=== PATIENT | female | born 1945 | race American Indian/Alaskan Native ===

== ENCOUNTER 2018-08-07 19:14 | Emergency (ER) | payer MEDICARE, SELFPAY ==
[2018-08-07 19:25] VITALS: BP 190/79; PULSE 91; RESP 20; TEMP 36.8; O2SAT 94
--- NOTE | 2018-08-07 19:26 | ED.SOB ---
HPI - SOB/Dyspnea <Lisa Mehta PA-C - Last Filed: 08/07/18 22:11> General Chief Complaint: Shortness of Breath/Dyspnea Stated Complaint: SOB Time Seen by Provider: 08/07/18 19:26 Source: patient and family Mode of arrival: ambulatory Limitations: no limitations History of Present Illness This 72-year-old comes in encouraged by family due to 2 day history of chest congestion and some tightness. She states this is mostly cough and congestion with increased sputum production. She also has nasal congestion, sinus pressure, and some right ear congestion. She states that she really does not have wheeze or feel particularly short of breath. She has been more fatigued and had less appetite, doing less around the house than usual. She states that she has not had any chest pain except for earlier when she was sitting in the chair, and resolved as soon as she changed positions (this lasted a few seconds she says). She has not had any new urinary symptoms. She states that she has some constipation but did have a bowel movement yesterday. She does not have abdominal pain. She does not have any new swelling or pain in her legs or other new complaints on systems review. She states that she has been diagnosed with asthma and used to be a smoker. She has a nebulizer machine at home but has not used this in the last couple of days. She states that she has stopped her other medicines as well including her metformin because it causes diarrhea, and has stopped her blood pressure medicines. States that she avoids doctors but does have a PCP. Related Data Previous Rx's Medication Instructions Recorded VITAMIN D (Vitamin D3) 1,000 u PO QDAY #180 tab 06/17/16 albuterol sulfate 3 ml INH X1 #1 box 08/05/16 famotidine 20 mg PO QDAY #90 tab 01/20/17 furosemide 40 mg PO QDAY #90 tab 01/20/17 lisinopril 2.5 mg PO QDAY #90 tab 01/20/17 metformin [Glucophage] 500 mg PO BID #180 tab 01/20/17 Test Strips - Freestyle str SEECOM SEE INSTRUCTIONS #100 01/21/17 montelukast [Singulair] 10 mg PO HS #30 tab 02/24/17 doxycycline monohydrate 100 mg PO BID #14 cap 08/07/18 Allergies Allergy/AdvReac Type Severity Reaction Status Date / Time codeine Allergy Unknown ITCHING Verified 08/07/18 19:27 morphine Allergy Unknown RASH Verified 08/07/18 19:27 Penicillins Allergy Unknown RASH Verified 08/07/18 19:27 Review of Systems <Lisa Mehta PA-C - Last Filed: 08/07/18 22:11> Review of Systems ROS Unobtainable: All systems reviewed & are unremarkable except as noted in HPI and below PFSH <Lisa Mehta PA-C - Last Filed: 08/07/18 22:11> Comment: Approximately 20+ pack year smoking history, quit 2009 Exam <VICTORIA Howe Last Filed: 08/07/18 22:11> Narrative Exam Narrative: GENERAL APPEARANCE: Patient sitting comfortably, in no distress. HEAD: No sinus TTP. EYES: PERRL, EOMI. EARS: Normal auditory canals, left TM intact with dull right reflex, right is mostly occluded secondary to cerumen ORAL CAVITY: Normal oropharynx. THROAT: Clear. PND noted NECK/THYROID: Neck supple, full range of motion, no cervical lymphadenopathy. LUNGS: Breath what course and reduced throughout without wheezes or crackles, no cough on exam HEART: RRR without murmur, nl S1, S2, no S3 or S4. ABDOMEN: Soft, nontender, nondistended, +bowel sounds x4 quadrants EXTREMITIES: No edema, no calf tenderness Initial Vital Signs Initial Vital Signs: Vital Signs Temperature 98.2 F 08/07/18 19:25 Pulse Rate 91 H 08/07/18 19:25 Respiratory Rate 20 08/07/18 19:25 Blood Pressure 190/79 H 08/07/18 19:25 Pulse Oximetry 94 08/07/18 19:25 <Bay Mcbride DO - Last Filed: 08/08/18 01:46> Initial Vital Signs Initial Vital Signs: Vital Signs Temperature 98.2 F 08/07/18 19:25 Pulse Rate 91 H 08/07/18 19:25 Respiratory Rate 20 08/07/18 19:25 Blood Pressure 190/79 H 08/07/18 19:25 Pulse Oximetry 94 08/07/18 19:25 Course <VICTORIA Howe Last Filed: 08/07/18 22:11> Additional Information: Patient was feeling significantly improved after nebulizer treatments. She has not been using her home nebulizer machine. She has a diagnosis of asthma, states that she does not know of any diagnosis of COPD though this is noted in her previous records. Explained that this is likely given her chronic cough and smoking history. Will start antibiotics for COPD given her age, comorbidities, and increased sputum production. 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 She agreed to return if acutely worse. Agreed to follow up with her PCP early next week for recheck, and encouraged her to discuss resuming her diabetes and blood pressure medications. Orders Ordered: ED Orders 08/07/18 19:24 EKG-12 Lead Stat 08/07/18 19:27 Consult to Respiratory Therapy Evaluate & Treat XR chest 2V Stat 08/07/18 20:00 Complete Blood Count AUTO DIFF Stat Comprehensive Metabolic Panel Stat Influenza A and B by PCR Rapid Stat Lactate (Lactic Acid) Stat 08/07/18 20:50 Consult to Respiratory Therapy Evaluate & Treat Discontinued Medications Albuterol (Ventolin Hfa Prepack) 1 box MISC SEEINSTR ONE Stop: 08/07/18 20:51 Last Admin: 08/07/18 20:58 Dose: 1 box Albuterol/Ipratropium (Duoneb) 3 ml INH NOW ONE Stop: 08/07/18 19:53 Last Admin: 08/07/18 20:01 Dose: 3 ml Doxycycline Hyclate (Vibramycin) 100 mg PO NOW ONE Stop: 08/07/18 20:51 Last Admin: 08/07/18 21:00 Dose: 100 mg Vital Signs - 8 hr 08/07/18 19:25 08/07/18 20:01 08/07/18 20:44 Temperature 98.2 F Pulse Rate 91 H 84 82 Respiratory Rate 20 18 19 Blood Pressure 190/79 H Blood Pressure [Right Arm] 181/78 H Pulse Oximetry 94 94 95 08/07/18 21:54 Temperature Pulse Rate 90 Respiratory Rate 22 Blood Pressure 158/71 H Blood Pressure [Right Arm] Pulse Oximetry 95 <Bay Mcbride DO - Last Filed: 08/08/18 01:46> Orders Ordered: ED Orders 08/07/18 19:24 EKG-12 Lead Stat 08/07/18 19:27 Consult to Respiratory Therapy Evaluate & Treat XR chest 2V Stat 08/07/18 20:00 Complete Blood Count AUTO DIFF Stat Comprehensive Metabolic Panel Stat Influenza A and B by PCR Rapid Stat Lactate (Lactic Acid) Stat 08/07/18 20:50 Consult to Respiratory Therapy Evaluate & Treat Discontinued Medications Albuterol (Ventolin Hfa Prepack) 1 box MISC SEEINSTR ONE Stop: 08/07/18 20:51 Last Admin: 08/07/18 20:58 Dose: 1 box Albuterol/Ipratropium (Duoneb) 3 ml INH NOW ONE Stop: 08/07/18 19:53 Last Admin: 08/07/18 20:01 Dose: 3 ml Doxycycline Hyclate (Vibramycin) 100 mg PO NOW ONE Stop: 08/07/18 20:51 Last Admin: 08/07/18 21:00 Dose: 100 mg Vital Signs - 8 hr 08/07/18 19:25 08/07/18 20:01 08/07/18 20:44 Temperature 98.2 F Pulse Rate 91 H 84 82 Respiratory Rate 20 18 19 Blood Pressure 190/79 H Blood Pressure [Right Arm] 181/78 H Pulse Oximetry 94 94 95 08/07/18 21:54 Temperature Pulse Rate 90 Respiratory Rate 22 Blood Pressure 158/71 H Blood Pressure [Right Arm] Pulse Oximetry 95 MDM - SOB/Dyspnea <Lisa Mehta PA-C - Last Filed: 08/07/18 22:11> Lab Data Attestation: I reviewed the patient's lab results. Result diagrams: 08/07/18 20:00 08/07/18 20:00 Lab Results 08/07/18 08/07/18 08/07/18 Range/Units 20:00 20:00 20:00 WBC 13.6 H (4.5-11.0) X10^3/uL RBC 5.00 (4.0-5.2) X10^6/uL Hgb 14.1 (12.0-16.0) g/dL Hct 42.1 (36-46) % MCV 84.2 (80-100) fL MCH 28.1 (26-34) PG MCHC 33.4 (30-36) % RDW 15.2 H (11.6-14.8) % Plt Count 311 (150-400) X10^3/uL Neut % (Auto) 78.5 H (50-75) % Lymph % (Auto) 13.6 L (25-40) % [place] % (Auto) 6.2 (3-14) % Eos % (Auto) 1.0 L (2-4) % Baso % (Auto) 0.7 (0-2) % Neut # (Auto) 38959 H (6067-6466) /uL Lymph # (Auto) 1900 (6614-5428) /uL [place] # (Auto) 800 (0-900) /uL Eos # (Auto) 100 (0-450) /uL Baso # (Auto) 100 (0-100) /uL Sodium 138 (137-145) mmol/L Potassium 3.7 (3.4-5.1) mmol/L Chloride 104 (98-107) mmol/L Carbon Dioxide 24 (22-32) mmol/L BUN 13 (7-17) mg/dL Creatinine 0.70 (0.52-1.04) mg/dL Estimated GFR > 60.0 (>60) mL/min BUN/Creatinine Ratio 18.6 (6-22) Glucose 144 H (80-110) mg/dL Lactate 0.9 (0.7-2.1) mmol/L Calcium 11.2 H (8.4-10.2) mg/dL Total Bilirubin 0.6 (0.2-1.3) mg/dL AST 19 (14-36) IU/L ALT 25 (9-52) IU/L Alkaline Phosphatase 84 (38-126) U/L Total Protein 7.1 (6.3-8.2) g/dL Albumin 4.2 (3.5-5.0) g/dL Globulin 2.9 (1.7-4.1) g/dL Albumin/Globulin Ratio 1.4 (1.0-2.8) Influenza A & B (PCR) (Negative) 08/07/18 Range/Units 20:00 WBC (4.5-11.0) X10^3/uL RBC (4.0-5.2) X10^6/uL Hgb (12.0-16.0) g/dL Hct (36-46) % MCV (80-100) fL MCH (26-34) PG MCHC (30-36) % RDW (11.6-14.8) % Plt Count (150-400) X10^3/uL Neut % (Auto) (50-75) % Lymph % (Auto) (25-40) % [place] % (Auto) (3-14) % Eos % (Auto) (2-4) % Baso % (Auto) (0-2) % Neut # (Auto) (6769-4863) /uL Lymph # (Auto) (3514-4954) /uL [place] # (Auto) (0-900) /uL Eos # (Auto) (0-450) /uL Baso # (Auto) (0-100) /uL Sodium (137-145) mmol/L Potassium (3.4-5.1) mmol/L Chloride (98-107) mmol/L Carbon Dioxide (22-32) mmol/L BUN (7-17) mg/dL Creatinine (0.52-1.04) mg/dL Estimated GFR (>60) mL/min BUN/Creatinine Ratio (6-22) Glucose (80-110) mg/dL Lactate (0.7-2.1) mmol/L Calcium (8.4-10.2) mg/dL Total Bilirubin (0.2-1.3) mg/dL AST (14-36) IU/L ALT (9-52) IU/L Alkaline Phosphatase (38-126) U/L Total Protein (6.3-8.2) g/dL Albumin (3.5-5.0) g/dL Globulin (1.7-4.1) g/dL Albumin/Globulin Ratio (1.0-2.8) Influenza A & B (PCR) Negative (Negative) Imaging Data Chest x-ray: Radiologist's impression: View Report History [address] [address] XRay Report Signed Patient: Ivan Guy MR#: [id number] : 1945 Acct:[id number] Age/Sex: 72 / F Date of Service: 08/07/18 Loc: ED Accession Number: [id number] Procedure: XR chest 2V Ordering Provider: Lisa Mehta P.A-C PROCEDURE: XR CHEST 2V INDICATIONS: shortness of breath TECHNIQUE: 2 views of the chest were acquired. COMPARISON: None. FINDINGS: Surgical changes and devices: None. Lungs and pleura: No pleural effusions or pneumothorax. Lungs are clear. Mediastinum: Mediastinal contours are normal. Heart size is normal. Bones and chest wall: No suspicious bony abnormalities. Soft tissues appear unremarkable. IMPRESSION: No acute pulmonary process. Dictated by: Renetta Maza M.D. on 08/07/2018 at 19:40 Approved by: Renetta Maza M.D. on 08/07/2018 at 19:41 ECG Data Attestation: I personally reviewed and interpreted this ECG as follows: (Sinus rhythm with rate 88, isoelectric axis, nonspecific ST changes ) Prior ECG tracings: not available for review <Bay Mcbride DO - Last Filed: 08/08/18 01:46> Lab Data Lab Results 08/07/18 08/07/18 08/07/18 Range/Units 20:00 20:00 20:00 WBC 13.6 H (4.5-11.0) X10^3/uL RBC 5.00 (4.0-5.2) X10^6/uL Hgb 14.1 (12.0-16.0) g/dL Hct 42.1 (36-46) % MCV 84.2 (80-100) fL MCH 28.1 (26-34) PG MCHC 33.4 (30-36) % RDW 15.2 H (11.6-14.8) % Plt Count 311 (150-400) X10^3/uL Neut % (Auto) 78.5 H (50-75) % Lymph % (Auto) 13.6 L (25-40) % [place] % (Auto) 6.2 (3-14) % Eos % (Auto) 1.0 L (2-4) % Baso % (Auto) 0.7 (0-2) % Neut # (Auto) 90923 H (0475-3596) /uL Lymph # (Auto) 1900 (0463-0724) /uL [place] # (Auto) 800 (0-900) /uL Eos # (Auto) 100 (0-450) /uL Baso # (Auto) 100 (0-100) /uL Sodium 138 (137-145) mmol/L Potassium 3.7 (3.4-5.1) mmol/L Chloride 104 (98-107) mmol/L Carbon Dioxide 24 (22-32) mmol/L BUN 13 (7-17) mg/dL Creatinine 0.70 (0.52-1.04) mg/dL Estimated GFR > 60.0 (>60) mL/min BUN/Creatinine Ratio 18.6 (6-22) Glucose 144 H (80-110) mg/dL Lactate 0.9 (0.7-2.1) mmol/L Calcium 11.2 H (8.4-10.2) mg/dL Total Bilirubin 0.6 (0.2-1.3) mg/dL AST 19 (14-36) IU/L ALT 25 (9-52) IU/L Alkaline Phosphatase 84 (38-126) U/L Total Protein 7.1 (6.3-8.2) g/dL Albumin 4.2 (3.5-5.0) g/dL Globulin 2.9 (1.7-4.1) g/dL Albumin/Globulin Ratio 1.4 (1.0-2.8) Influenza A & B (PCR) (Negative) 08/07/18 Range/Units 20:00 WBC (4.5-11.0) X10^3/uL RBC (4.0-5.2) X10^6/uL Hgb (12.0-16.0) g/dL Hct (36-46) % MCV (80-100) fL MCH (26-34) PG MCHC (30-36) % RDW (11.6-14.8) % Plt Count (150-400) X10^3/uL Neut % (Auto) (50-75) % Lymph % (Auto) (25-40) % [place] % (Auto) (3-14) % Eos % (Auto) (2-4) % Baso % (Auto) (0-2) % Neut # (Auto) (8798-6083) /uL Lymph # (Auto) (0281-9718) /uL [place] # (Auto) (0-900) /uL Eos # (Auto) (0-450) /uL Baso # (Auto) (0-100) /uL Sodium (137-145) mmol/L Potassium (3.4-5.1) mmol/L Chloride (98-107) mmol/L Carbon Dioxide (22-32) mmol/L BUN (7-17) mg/dL Creatinine (0.52-1.04) mg/dL Estimated GFR (>60) mL/min BUN/Creatinine Ratio (6-22) Glucose (80-110) mg/dL Lactate (0.7-2.1) mmol/L Calcium (8.4-10.2) mg/dL Total Bilirubin (0.2-1.3) mg/dL AST (14-36) IU/L ALT (9-52) IU/L Alkaline Phosphatase (38-126) U/L Total Protein (6.3-8.2) g/dL Albumin (3.5-5.0) g/dL Globulin (1.7-4.1) g/dL Albumin/Globulin Ratio (1.0-2.8) Influenza A & B (PCR) Negative (Negative) Discharge Plan Departure Patient Disposition: Home Clinical Impression: Asthma with COPD with exacerbation Discharge Date/Time: 08/07/18 21:55 Interventions: ED Discharge Assessment Last Done: 08/07/18 21:54 Instructions: DI for Asthma -- Adult, DI for Chronic Obstructive Pulmonary Disease Activity Restrictions/Additional Instructions: You should return as we talked about if you have any acutely worsening symptoms. I think with what you described to me today you have a combination of asthma and some COPD/smoker's cough with a chest cold. Your test did not show pneumonia or influenza. You do not have signs of a heart problem. It is very important that you use your nebulizer machine at home, and you can also use the albuterol inhaler that we gave you as often as needed for cough, or chest tightness. You have had the 1st dose of antibiotic here tonight (doxycycline), and you can pickers material handlers the rest of the prescription as soon as right ate opens in the morning and you should take the 2nd dose then (I have sent a prescription for you). Please take the antibiotic twice daily and be sure to follow up with your PCP on Friday or Friday for recheck. Please discussed starting different diabetes medicines since you had side effects, as well as your blood pressure medicine Prescriptions: New doxycycline monohydrate 100 mg capsule 100 mg PO BID Qty: 14 RF: 0 No Action VITAMIN D (Vitamin D3) 1,000 u PO QDAY Qty: 180 RF: 1 albuterol sulfate 2.5 MG/3 ML solution for nebulization 3 ml INH X1 Qty: 1 RF: 2 furosemide 40 MG tablet 40 mg PO QDAY Qty: 90 RF: 1 metformin [Glucophage] 500 MG tablet 500 mg PO BID Qty: 180 RF: 1 lisinopril 2.5 MG tablet 2.5 mg PO QDAY Qty: 90 RF: 1 famotidine 20 MG tablet 20 mg PO QDAY Qty: 90 RF: 1 Test Strips - Freestyle SEECOM SEE INSTRUCTIONS Qty: 100 RF: 3 montelukast [Singulair] 10 MG tablet 10 mg PO HS Qty: 30 RF: 2 Referrals: oBy Patiño MD [Physician] - <Bay Mcbride DO - Last Filed: 08/08/18 01:46> Cosign ED Attending Carlos Attestation: I was immediately available in the department for consultation. Documentation has been reviewed. I agree with assessment and plan.
--- NOTE | 2018-08-07 19:52 | ED_ITS ---
HPI - SOB/Dyspnea <Lisa Mehta PA-C - Last Filed: 08/07/18 22:11> General Chief Complaint: Shortness of Breath/Dyspnea Stated Complaint: SOB Time Seen by Provider: 08/07/18 19:26 Source: patient and family Mode of arrival: ambulatory Limitations: no limitations History of Present Illness This 72-year-old comes in encouraged by family due to 2 day history of chest congestion and some tightness. She states this is mostly cough and congestion with increased sputum production. She also has nasal congestion, sinus pressure , and some right ear congestion. She states that she really does not have wheeze or feel particularly short of breath. She has been more fatigued and had less appetite, doing less around the house than usual. She states that she has not had any chest pain except for earlier when she was sitting in the chair , and resolved as soon as she changed positions (this lasted a few seconds she says). She has not had any new urinary symptoms. She states that she has some constipation but did have a bowel movement yesterday. She does not have abdominal pain. She does not have any new swelling or pain in her legs or other new complaints on systems review. She states that she has been diagnosed with asthma and used to be a smoker. She has a nebulizer machine at home but has not used this in the last couple of days. She states that she has stopped her other medicines as well including her metformin because it causes diarrhea, and has stopped her blood pressure medicines. States that she avoids doctors but does have a PCP. Related Data Previous Rx's Medication Instructions Recorded VITAMIN D (Vitamin D3) 1,000 u PO QDAY #180 tab 06/17/16 albuterol sulfate 3 ml INH X1 #1 box 08/05/16 famotidine 20 mg PO QDAY #90 tab 01/20/17 furosemide 40 mg PO QDAY #90 tab 01/20/17 lisinopril 2.5 mg PO QDAY #90 tab 01/20/17 metformin [Glucophage] 500 mg PO BID #180 tab 01/20/17 Test Strips - Freestyle str SEECOM SEE INSTRUCTIONS #100 01/21/17 montelukast [Singulair] 10 mg PO HS #30 tab 02/24/17 doxycycline monohydrate 100 mg PO BID #14 cap 08/07/18 Allergies Allergy/AdvReac Type Severity Reaction Status Date / Time codeine Allergy Unknown ITCHING Verified 08/07/18 19:27 morphine Allergy Unknown RASH Verified 08/07/18 19:27 Penicillins Allergy Unknown RASH Verified 08/07/18 19:27 Review of Systems <Lisa Mehta PA-C - Last Filed: 08/07/18 22:11> Review of Systems ROS Unobtainable: All systems reviewed & are unremarkable except as noted in HPI and below PFSH <Lisa Mehta PA-C - Last Filed: 08/07/18 22:11> Comment: Approximately 20+ pack year smoking history, quit 2009 Exam <VICTORIA Howe Last Filed: 08/07/18 22:11> Narrative Exam Narrative: GENERAL APPEARANCE: Patient sitting comfortably, in no distress. HEAD: No sinus TTP. EYES: PERRL, EOMI. EARS: Normal auditory canals, left TM intact with dull right reflex, right is mostly occluded secondary to cerumen ORAL CAVITY: Normal oropharynx. THROAT: Clear. PND noted NECK/THYROID: Neck supple, full range of motion, no cervical lymphadenopathy. LUNGS: Breath what course and reduced throughout without wheezes or crackles, no cough on exam HEART: RRR without murmur, nl S1, S2, no S3 or S4. ABDOMEN: Soft, nontender, nondistended, +bowel sounds x4 quadrants EXTREMITIES: No edema, no calf tenderness Initial Vital Signs Initial Vital Signs: Vital Signs Temperature 98.2 F 08/07/18 19:25 Pulse Rate 91 H 08/07/18 19:25 Respiratory Rate 20 08/07/18 19:25 Blood Pressure 190/79 H 08/07/18 19:25 Pulse Oximetry 94 08/07/18 19:25 <Bay Mcbride DO - Last Filed: 08/08/18 01:46> Initial Vital Signs Initial Vital Signs: Vital Signs Temperature 98.2 F 08/07/18 19:25 Pulse Rate 91 H 08/07/18 19:25 Respiratory Rate 20 08/07/18 19:25 Blood Pressure 190/79 H 08/07/18 19:25 Pulse Oximetry 94 08/07/18 19:25 Course <VICTORIA Howe Last Filed: 08/07/18 22:11> Additional Information: Patient was feeling significantly improved after nebulizer treatments. She has not been using her home nebulizer machine. She has a diagnosis of asthma, states that she does not know of any diagnosis of COPD though this is noted in her previous records. Explained that this is likely given her chronic cough and smoking history. Will start antibiotics for COPD given her age, comorbidities, and increased sputum production. She will stay here tonight and draft roller picker her prescriptions in the morning. She agreed to return if acutely worse. Agreed to follow up with her PCP early next week for recheck, and encouraged her to discuss resuming her diabetes and blood pressure medications. Orders Ordered: ED Orders 08/07/18 19:24 EKG-12 Lead Stat 08/07/18 19:27 Consult to Respiratory Therapy Evaluate & Treat XR chest 2V Stat 08/07/18 20:00 Complete Blood Count AUTO DIFF Stat Comprehensive Metabolic Panel Stat Influenza A and B by PCR Rapid Stat Lactate (Lactic Acid) Stat 08/07/18 20:50 Consult to Respiratory Therapy Evaluate & Treat Discontinued Medications Albuterol (Ventolin Hfa Prepack) 1 box MISC SEEINSTR ONE Stop: 08/07/18 20:51 Last Admin: 08/07/18 20:58 Dose: 1 box Albuterol/Ipratropium (Duoneb) 3 ml INH NOW ONE Stop: 08/07/18 19:53 Last Admin: 08/07/18 20:01 Dose: 3 ml Doxycycline Hyclate (Vibramycin) 100 mg PO NOW ONE Stop: 08/07/18 20:51 Last Admin: 08/07/18 21:00 Dose: 100 mg Vital Signs - 8 hr 08/07/18 19:25 08/07/18 20:01 08/07/18 20:44 Temperature 98.2 F Pulse Rate 91 H 84 82 Respiratory Rate 20 18 19 Blood Pressure 190/79 H Blood Pressure [Right Arm] 181/78 H Pulse Oximetry 94 94 95 08/07/18 21:54 Temperature Pulse Rate 90 Respiratory Rate 22 Blood Pressure 158/71 H Blood Pressure [Right Arm] Pulse Oximetry 95 <Bay Mcbride DO - Last Filed: 08/08/18 01:46> Orders Ordered: ED Orders 08/07/18 19:24 EKG-12 Lead Stat 08/07/18 19:27 Consult to Respiratory Therapy Evaluate & Treat XR chest 2V Stat 08/07/18 20:00 Complete Blood Count AUTO DIFF Stat Comprehensive Metabolic Panel Stat Influenza A and B by PCR Rapid Stat Lactate (Lactic Acid) Stat 08/07/18 20:50 Consult to Respiratory Therapy Evaluate & Treat Discontinued Medications Albuterol (Ventolin Hfa Prepack) 1 box MISC SEEINSTR ONE Stop: 08/07/18 20:51 Last Admin: 08/07/18 20:58 Dose: 1 box Albuterol/Ipratropium (Duoneb) 3 ml INH NOW ONE Stop: 08/07/18 19:53 Last Admin: 08/07/18 20:01 Dose: 3 ml Doxycycline Hyclate (Vibramycin) 100 mg PO NOW ONE Stop: 08/07/18 20:51 Last Admin: 08/07/18 21:00 Dose: 100 mg Vital Signs - 8 hr 08/07/18 19:25 08/07/18 20:01 08/07/18 20:44 Temperature 98.2 F Pulse Rate 91 H 84 82 Respiratory Rate 20 18 19 Blood Pressure 190/79 H Blood Pressure [Right Arm] 181/78 H Pulse Oximetry 94 94 95 08/07/18 21:54 Temperature Pulse Rate 90 Respiratory Rate 22 Blood Pressure 158/71 H Blood Pressure [Right Arm] Pulse Oximetry 95 MDM - SOB/Dyspnea <Lisa Mehta PA-C - Last Filed: 08/07/18 22:11> Lab Data Attestation: I reviewed the patient's lab results. Result diagrams: 08/07/18 20:00 08/07/18 20:00 Lab Results 08/07/18 08/07/18 08/07/18 Range/Units 20:00 20:00 20:00 WBC 13.6 H (4.5-11.0) X10^3/uL RBC 5.00 (4.0-5.2) X10^6/uL Hgb 14.1 (12.0-16.0) g/dL Hct 42.1 (36-46) % MCV 84.2 (80-100) fL MCH 28.1 (26-34) PG MCHC 33.4 (30-36) % RDW 15.2 H (11.6-14.8) % Plt Count 311 (150-400) X10^3/uL Neut % (Auto) 78.5 H (50-75) % Lymph % (Auto) 13.6 L (25-40) % [place] % (Auto) 6.2 (3-14) % Eos % (Auto) 1.0 L (2-4) % Baso % (Auto) 0.7 (0-2) % Neut # (Auto) 21942 H (2298-8452) /uL Lymph # (Auto) 1900 (0692-5766) /uL [place] # (Auto) 800 (0-900) /uL Eos # (Auto) 100 (0-450) /uL Baso # (Auto) 100 (0-100) /uL Sodium 138 (137-145) mmol/L Potassium 3.7 (3.4-5.1) mmol/L Chloride 104 (98-107) mmol/L Carbon Dioxide 24 (22-32) mmol/L BUN 13 (7-17) mg/dL Creatinine 0.70 (0.52-1.04) mg/dL Estimated GFR > 60.0 (>60) mL/min BUN/Creatinine Ratio 18.6 (6-22) Glucose 144 H (80-110) mg/dL Lactate 0.9 (0.7-2.1) mmol/L Calcium 11.2 H (8.4-10.2) mg/dL Total Bilirubin 0.6 (0.2-1.3) mg/dL AST 19 (14-36) IU/L ALT 25 (9-52) IU/L Alkaline Phosphatase 84 (38-126) U/L Total Protein 7.1 (6.3-8.2) g/dL Albumin 4.2 (3.5-5.0) g/dL Globulin 2.9 (1.7-4.1) g/dL Albumin/Globulin Ratio 1.4 (1.0-2.8) Influenza A & B (PCR) (Negative) 08/07/18 Range/Units 20:00 WBC (4.5-11.0) X10^3/uL RBC (4.0-5.2) X10^6/uL Hgb (12.0-16.0) g/dL Hct (36-46) % MCV (80-100) fL MCH (26-34) PG MCHC (30-36) % RDW (11.6-14.8) % Plt Count (150-400) X10^3/uL Neut % (Auto) (50-75) % Lymph % (Auto) (25-40) % [place] % (Auto) (3-14) % Eos % (Auto) (2-4) % Baso % (Auto) (0-2) % Neut # (Auto) (9986-7331) /uL Lymph # (Auto) (5694-1209) /uL [place] # (Auto) (0-900) /uL Eos # (Auto) (0-450) /uL Baso # (Auto) (0-100) /uL Sodium (137-145) mmol/L Potassium (3.4-5.1) mmol/L Chloride (98-107) mmol/L Carbon Dioxide (22-32) mmol/L BUN (7-17) mg/dL Creatinine (0.52-1.04) mg/dL Estimated GFR (>60) mL/min BUN/Creatinine Ratio (6-22) Glucose (80-110) mg/dL Lactate (0.7-2.1) mmol/L Calcium (8.4-10.2) mg/dL Total Bilirubin (0.2-1.3) mg/dL AST (14-36) IU/L ALT (9-52) IU/L Alkaline Phosphatase (38-126) U/L Total Protein (6.3-8.2) g/dL Albumin (3.5-5.0) g/dL Globulin (1.7-4.1) g/dL Albumin/Globulin Ratio (1.0-2.8) Influenza A & B (PCR) Negative (Negative) Imaging Data Chest x-ray: Radiologist's impression: View Report History [address] [address] XRay Report Signed Patient: Ivan Guy MR#: [id number] : 1945 Acct:[id number] Age/Sex: 72 / F Date of Service: 08/07/18 Loc: ED Accession Number: [id number] Procedure: XR chest 2V Ordering Provider: Lisa Mehta P.A-C PROCEDURE: XR CHEST 2V INDICATIONS: shortness of breath TECHNIQUE: 2 views of the chest were acquired. COMPARISON: None. FINDINGS: Surgical changes and devices: None. Lungs and pleura: No pleural effusions or pneumothorax. Lungs are clear. Mediastinum: Mediastinal contours are normal. Heart size is normal. Bones and chest wall: No suspicious bony abnormalities. Soft tissues appear unremarkable. IMPRESSION: No acute pulmonary process. Dictated by: Renetta Maza M.D. on 08/07/2018 at 19:40 Approved by: Renetta Maza M.D. on 08/07/2018 at 19:41 ECG Data Attestation: I personally reviewed and interpreted this ECG as follows: (Sinus rhythm with rate 88, isoelectric axis, nonspecific ST changes ) Prior ECG tracings: not available for review <Bay Mcbride DO - Last Filed: 08/08/18 01:46> Lab Data Lab Results 08/07/18 08/07/18 08/07/18 Range/Units 20:00 20:00 20:00 WBC 13.6 H (4.5-11.0) X10^3/uL RBC 5.00 (4.0-5.2) X10^6/uL Hgb 14.1 (12.0-16.0) g/dL Hct 42.1 (36-46) % MCV 84.2 (80-100) fL MCH 28.1 (26-34) PG MCHC 33.4 (30-36) % RDW 15.2 H (11.6-14.8) % Plt Count 311 (150-400) X10^3/uL Neut % (Auto) 78.5 H (50-75) % Lymph % (Auto) 13.6 L (25-40) % [place] % (Auto) 6.2 (3-14) % Eos % (Auto) 1.0 L (2-4) % Baso % (Auto) 0.7 (0-2) % Neut # (Auto) 44419 H (0343-8375) /uL Lymph # (Auto) 1900 (0077-2383) /uL [place] # (Auto) 800 (0-900) /uL Eos # (Auto) 100 (0-450) /uL Baso # (Auto) 100 (0-100) /uL Sodium 138 (137-145) mmol/L Potassium 3.7 (3.4-5.1) mmol/L Chloride 104 (98-107) mmol/L Carbon Dioxide 24 (22-32) mmol/L BUN 13 (7-17) mg/dL Creatinine 0.70 (0.52-1.04) mg/dL Estimated GFR > 60.0 (>60) mL/min BUN/Creatinine Ratio 18.6 (6-22) Glucose 144 H (80-110) mg/dL Lactate 0.9 (0.7-2.1) mmol/L Calcium 11.2 H (8.4-10.2) mg/dL Total Bilirubin 0.6 (0.2-1.3) mg/dL AST 19 (14-36) IU/L ALT 25 (9-52) IU/L Alkaline Phosphatase 84 (38-126) U/L Total Protein 7.1 (6.3-8.2) g/dL Albumin 4.2 (3.5-5.0) g/dL Globulin 2.9 (1.7-4.1) g/dL Albumin/Globulin Ratio 1.4 (1.0-2.8) Influenza A & B (PCR) (Negative) 08/07/18 Range/Units 20:00 WBC (4.5-11.0) X10^3/uL RBC (4.0-5.2) X10^6/uL Hgb (12.0-16.0) g/dL Hct (36-46) % MCV (80-100) fL MCH (26-34) PG MCHC (30-36) % RDW (11.6-14.8) % Plt Count (150-400) X10^3/uL Neut % (Auto) (50-75) % Lymph % (Auto) (25-40) % [place] % (Auto) (3-14) % Eos % (Auto) (2-4) % Baso % (Auto) (0-2) % Neut # (Auto) (3762-3588) /uL Lymph # (Auto) (0593-0454) /uL [place] # (Auto) (0-900) /uL Eos # (Auto) (0-450) /uL Baso # (Auto) (0-100) /uL Sodium (137-145) mmol/L Potassium (3.4-5.1) mmol/L Chloride (98-107) mmol/L Carbon Dioxide (22-32) mmol/L BUN (7-17) mg/dL Creatinine (0.52-1.04) mg/dL Estimated GFR (>60) mL/min BUN/Creatinine Ratio (6-22) Glucose (80-110) mg/dL Lactate (0.7-2.1) mmol/L Calcium (8.4-10.2) mg/dL Total Bilirubin (0.2-1.3) mg/dL AST (14-36) IU/L ALT (9-52) IU/L Alkaline Phosphatase (38-126) U/L Total Protein (6.3-8.2) g/dL Albumin (3.5-5.0) g/dL Globulin (1.7-4.1) g/dL Albumin/Globulin Ratio (1.0-2.8) Influenza A & B (PCR) Negative (Negative) Discharge Plan Departure Patient Disposition: Home Clinical Impression: Asthma with COPD with exacerbation Discharge Date/Time: 08/07/18 21:55 Interventions: ED Discharge Assessment Last Done: 08/07/18 21:54 Instructions: DI for Asthma -- Adult, DI for Chronic Obstructive Pulmonary Disease Activity Restrictions/Additional Instructions: You should return as we talked about if you have any acutely worsening symptoms. I think with what you described to me today you have a combination of asthma and some COPD/smoker's cough with a chest cold. Your test did not show pneumonia or influenza. You do not have signs of a heart problem. It is very important that you use your nebulizer machine at home, and you can also use the albuterol inhaler that we gave you as often as needed for cough, or chest tightness. You have had the 1st dose of antibiotic here tonight (doxycycline), and you can draft roller picker the rest of the prescription as soon as right ate opens in the morning and you should take the 2nd dose then (I have sent a prescription for you). Please take the antibiotic twice daily and be sure to follow up with your PCP on Friday or Friday for recheck. Please discussed starting different diabetes medicines since you had side effects, as well as your blood pressure medicine Prescriptions: New doxycycline monohydrate 100 mg capsule 100 mg PO BID Qty: 14 RF: 0 No Action VITAMIN D (Vitamin D3) 1,000 u PO QDAY Qty: 180 RF: 1 albuterol sulfate 2.5 MG/3 ML solution for nebulization 3 ml INH X1 Qty: 1 RF: 2 furosemide 40 MG tablet 40 mg PO QDAY Qty: 90 RF: 1 metformin [Glucophage] 500 MG tablet 500 mg PO BID Qty: 180 RF: 1 lisinopril 2.5 MG tablet 2.5 mg PO QDAY Qty: 90 RF: 1 famotidine 20 MG tablet 20 mg PO QDAY Qty: 90 RF: 1 Test Strips - Freestyle SEECOM SEE INSTRUCTIONS Qty: 100 RF: 3 montelukast [Singulair] 10 MG tablet 10 mg PO HS Qty: 30 RF: 2 Referrals: Boy Patiño MD [Physician] - <Bay Mcbride DO - Last Filed: 08/08/18 01:46> Cosign ED Attending Carlos Attestation: I was immediately available in the department for consultation. Documentation has been reviewed. I agree with assessment and plan.
[2018-08-07 20:01] VITALS: PULSE 84; RESP 18; O2SAT 94
[2018-08-07] MEDS: ALBUTEROL/IPRATROPIUM 3 ML AMPUL INH (20:01)
[2018-08-07 20:08] LABS: Add Manual Diff / Slide Review NO; Basophils Absolute Auto 100 /uL (0-100); Basophils Percent Auto 0.7 % (0-2); Eosinophils Absolute Auto 100 /uL (0-450); Hematocrit 42.1 % (36-46); Hemoglobin 14.1 g/dL (12.0-16.0); Lymphocytes Absolute Auto 1900 /uL (1100-4500); Lymphocytes Percent Auto 13.6 % (25-40); Mean Corpuscular HGB Conc 33.4 % (30-36); Mean Corpuscular Hemoglobin 28.1 PG (26-34); Mean Corpuscular Volume 84.2 fL (80-100); Monocytes Absolute Auto 800 /uL (0-900); Monocytes Percent Auto 6.2 % (3-14); Neutrophils Absolute Auto 10700 /uL (1500-7000); Neutrophils Percent Auto 78.5 % (50-75); Platelet Count 311 X10^3/uL (150-400); Red Cell Distribution Width 15.2 % (11.6-14.8); White Blood Cell Count 13.6 X10^3/uL (4.5-11.0)
[2018-08-07 20:19] LABS: Alanine Aminotransferase 25 IU/L (9-52); Albumin 4.2 g/dL (3.5-5.0); Albumin Globulin Ratio 1.4 (1.0-2.8); Alkaline Phosphatase 84 U/L (38-126); Aspartate Aminotransferase 19 IU/L (14-36); BUN Creatinine Ratio 18.6 (6-22); Bilirubin Total 0.6 mg/dL (0.2-1.3); Blood Urea Nitrogen 13 mg/dL (7-17); Calcium 11.2 mg/dL (8.4-10.2); Carbon Dioxide 24 mmol/L (22-32); Chloride 104 mmol/L (98-107); Estimated Glomerular Filt Rate > 60.0 mL/min (>60); Globulin 2.9 g/dL (1.7-4.1); Glucose 144 mg/dL (80-110); HEMOLYSIS 23 (0-50); Lactate (Lactic Acid) 0.9 mmol/L (0.7-2.1); Potassium 3.7 mmol/L (3.4-5.1); Sodium 138 mmol/L (137-145); Total Protein 7.1 g/dL (6.3-8.2)
[2018-08-07 20:23] LABS: Influenza A and B by PCR Rapid Negative (Negative)
[2018-08-07 20:44] VITALS: BP 181/78; PULSE 82; RESP 19; O2SAT 95
[2018-08-07] MEDS: ALBUTEROL HFA PREPACK 1 BOX MISC (20:58)
[2018-08-07] MEDS: DOXYCYCLINE HYCLATE 100 MG TABLET PO (21:00)
[2018-08-07 21:54] VITALS: BP 158/71; PULSE 90; RESP 22; O2SAT 95
== END 2018-08-07 21:55 | disposition home or self-care (01) ==
PROVIDERS: Emergency Provider Internal Medicine
DX: J44.1 Chronic obstructive pulmonary disease with (acute) exacerbation (principal); J45.901 Unspecified asthma with (acute) exacerbation
CPT/HCPCS: 36591; 71046; 80053; 83605; 85025; 87400; 93005; 94640; 99282; 99285

== ENCOUNTER 2019-05-20 20:29 | Emergency (ER) | payer MEDICARE, SELFPAY ==
[2019-05-20 20:43] VITALS: BP 169/66; PULSE 84; RESP 16; TEMP 36.8; O2SAT 100
--- NOTE | 2019-05-20 20:47 | DI.CT.S_ITS ---
PROCEDURE: CT HEAD/BRAIN WO CON INDICATIONS: seizure vs stroke TECHNIQUE: Noncontrast 4.5 mm thick angled axial sections acquired from the foramen magnum to the vertex, with coronal and sagittal reformats. For radiation dose reduction, the following was used: automated exposure control, adjustment of mA and/or kV according to patient size. COMPARISON: None. FINDINGS: Image quality: Excellent. CSF spaces: Basal cisterns are patent. No extra-axial fluid collections. The ventricles are symmetric in size and shape. Brain: No intracranial bleeds or masses. There is a large area of encephalomalacia involving the left frontoparietal lobe underlying previous left parietal cranioplasty. There is associated volume loss and ex vacuo dilatation of the left frontal horn. There is cerebral volume loss for age, with resultant ventricular and sulcal prominence. There are periventricular and deep white matter chronic small vessel ischemic changes. There is intracranial internal carotid artery atherosclerosis. Skull and face: Postoperative changes from left parietal cranioplasty. Calvarium and visualized facial bones are otherwise intact, without suspicious lesions. Sinuses: Minimal mucosal thickening of the right maxillary sinus. Remainder of the paranasal sinuses appear clear. Mastoid air cells are well-aerated. IMPRESSION: CT head without acute intracranial abnormalities. 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 Age-related senescent changes. Minimal right maxillary sinus disease. Dictated by: Kong Quinn M.D. on 05/20/2019 at 22:05 Approved by: Kong Quinn M.D. on 05/20/2019 at 22:09
[2019-05-20 21:00] VITALS: BP 174/72; PULSE 80; RESP 23; O2SAT 94
[2019-05-20 21:22] LABS: Add Manual Diff / Slide Review NO; Basophils Absolute Auto 0 /uL (0-100); Basophils Percent Auto 0.3 % (0-2); Eosinophils Absolute Auto 100 /uL (0-450); Eosinophils Percent Auto 0.5 % (2-4); Hematocrit 38.9 % (36-46); Hemoglobin 12.7 g/dL (12.0-16.0); Lymphocytes Absolute Auto 1400 /uL (1100-4500); Lymphocytes Percent Auto 10.7 % (25-40); Mean Corpuscular HGB Conc 32.8 % (30-36); Mean Corpuscular Hemoglobin 28.7 PG (26-34); Mean Corpuscular Volume 87.5 fL (80-100); Monocytes Absolute Auto 700 /uL (0-900); Neutrophils Absolute Auto 11000 /uL (1500-7000); Neutrophils Percent Auto 83.5 % (50-75); Platelet Count 279 X10^3/uL (150-400); Red Blood Cell Count 4.44 X10^6/uL (4.0-5.2); Red Cell Distribution Width 15.2 % (11.6-14.8); White Blood Cell Count 13.1 X10^3/uL (4.5-11.0)
[2019-05-20 21:33] LABS: Alanine Aminotransferase 26 IU/L (9-52); Albumin 4.3 g/dL (3.5-5.0); Albumin Globulin Ratio 1.3 (1.0-2.8); Alkaline Phosphatase 127 U/L (38-126); Aspartate Aminotransferase 36 IU/L (14-36); BUN Creatinine Ratio 18.9 (6-22); Bilirubin Total 0.5 mg/dL (0.2-1.3); Blood Urea Nitrogen 17 mg/dL (7-17); Carbon Dioxide 27 mmol/L (22-32); Chloride 104 mmol/L (98-107); Creatine Kinase 347 U/L (30-135); Estimated Glomerular Filt Rate > 60.0 mL/min (>60); Globulin 3.3 g/dL (1.7-4.1); Glucose 99 mg/dL (80-110); HEMOLYSIS < 15 (0-50); Potassium 3.9 mmol/L (3.4-5.1); Sodium 141 mmol/L (137-145); Total Protein 7.6 g/dL (6.3-8.2)
[2019-05-20 21:45] LABS: Troponin I 0.029 ng/mL (0.01-0.034)
[2019-05-20 21:48] LABS: CKMB % Relative Index 0.8 % (1.5-5.0); Creatine Kinase MB 2.67 ng/mL (<2.37)
[2019-05-20 21:49] LABS: Prolactin 8.7 ng/mL (3.0-18.6)
[2019-05-20 22:00] VITALS: BP 167/104; PULSE 88; RESP 22; O2SAT 94
[2019-05-20] MEDS: SODIUM CHLORIDE 0.9% 1,000 ML 1000 ML IV (22:00)
--- NOTE | 2019-05-20 22:07 | ED_ITS ---
HPI - Seizure General Chief Complaint: Seizure Stated Complaint: SEIZURES Time Seen by Provider: 05/20/19 20:41 Source: patient, family and EMS Mode of arrival: Family Vehicle History of Present Illness HPI Narrative: Patient is a 73-year-old female with history of brain tumor in craniotomy multiple years ago presenting with probable seizure. Family states that she was outside they were talking to her 1 of them turned around and heard something turned back around saw her standing there shaking unresponsive she was lowered to the ground. Where she continued to shake for at least 5 minutes. She came around she was very confused she has not quite returned to baseline in the ED. This is never happened before. They are worried about stroke. The patient is not an alcoholic she did perhaps start a new medication is but were not sure which 1 it is. At this time patient is able to follow commands but is a poor historian. Family states that she has had a seizure but it was at least 20 years ago. MD complaint: seizure Place: home Related Data Previous Rx's Medication Instructions Recorded VITAMIN D (Vitamin D3) 1,000 u PO QDAY #180 tab 06/17/16 albuterol sulfate 3 ml INH X1 #1 box 08/05/16 famotidine 20 mg PO QDAY #90 tab 01/20/17 furosemide 40 mg PO QDAY #90 tab 01/20/17 lisinopril 2.5 mg PO QDAY #90 tab 01/20/17 metformin [Glucophage] 500 mg PO BID #180 tab 01/20/17 Test Strips - Freestyle str SEECOM SEE INSTRUCTIONS #100 01/21/17 montelukast [Singulair] 10 mg PO HS #30 tab 02/24/17 doxycycline monohydrate 100 mg PO BID #14 cap 08/07/18 Allergies Allergy/AdvReac Type Severity Reaction Status Date / Time codeine Allergy Unknown ITCHING Verified 08/07/18 19:27 morphine Allergy Unknown RASH Verified 08/07/18 19:27 Penicillins Allergy Unknown RASH Verified 08/07/18 19:27 Review of Systems Review of Systems ROS Unobtainable: All systems reviewed & are unremarkable except as noted in HPI and below Constitutional Constitutional: Denies chills, Denies fever(s), Denies lethargy and Denies weakness Eyes Eyes: Denies change in vision, Denies eye discharge, Denies irritation and Denies loss of vision ENT Ears, Nose, Mouth, and Throat: Denies change in voice, Denies neck pain and Denies sore throat Cardiovascular Cardiovascular: Denies chest pain, Denies irregular heart rhythm, Denies lightheadedness, Denies palpitations, Denies dyspnea, Denies dyspnea on exertion and Denies orthopnea Respiratory Respiratory: Denies cough, Denies dyspnea, Denies dyspnea on exertion and Denies wheezing Gastrointestinal Gastrointestinal: Denies abdominal pain, Denies change in bowel habits, Denies diarrhea, Denies nausea and Denies vomiting Genitourinary Genitourinary: Denies hematuria, Denies flank pain, Denies urinary incontinence and Denies urinary urgency Musculoskeletal Musculoskeletal: Denies neck pain Integumentary/Breasts Skin/Breast: Denies pruritus, Denies erythema, Denies rash and Denies wounds Neurologic Neurologic: Denies loss of vision, Reports seizure-like activity and Denies weakness Endocrine Endocrine: Denies palpitations Allergic/Immunologic Allergic/Immunologic: Denies wheezing Patient History Medical History Chronic obstructive pulmonary disease (06/17/16) Essential hypertension (06/17/16) Gastroesophageal reflux disease (01/24/16) History of meningioma of the brain (01/24/16) Hypercalcemia (06/17/16) Hyperparathyroidism (01/24/16) Mild persistent asthma without complication (06/17/16) Mixed hyperlipidemia (06/17/16) Mixed stress and urge urinary incontinence (02/24/17) Stage 3 chronic kidney disease (01/24/16) Type 2 diabetes mellitus without complication, without long-term current use of insulin (06/17/16) Vitamin D deficiency (02/24/17) Surgical History Status post hysterectomy Family History Grandfather Cancer Grandmother Stroke Mother Cancer Other Chronic obstructive pulmonary disease Essential hypertension Gastroesophageal reflux disease Hypercalcemia Mild persistent asthma without complication Mixed hyperlipidemia Mixed stress and urge urinary incontinence Type 2 diabetes mellitus without complication, without long-term current use of insulin Vitamin D deficiency Exam Initial Vital Signs Initial Vital Signs: Vital Signs Temperature 98.3 F 05/20/19 20:43 Pulse Rate 84 05/20/19 20:43 Respiratory Rate 16 05/20/19 20:43 Blood Pressure 169/66 H 05/20/19 20:43 Pulse Oximetry 100 05/20/19 20:43 GENERAL: Awake alert elderly female follows commands and confused HEENT: Head atraumatic,EOMI, pupils reactive, face symmetric CARDIOVASCULAR: Regular rate and rhythm without murmurs, rubs or gallops. RESPIRATORY: Breath sounds equal bilaterally, no wheezes rales or rhonchi. ABDOMEN: Soft, nontender. Normoactive bowel sounds all 4 quadrants. No guarding or rebound.s EXTREMITIES: Normal range of motion, no clubbing or edema. Neurovascularly intact NEUROLOGICAL: Alert and oriented x2 no aphasia no dysphagia cash person strength equal bilaterally good finger to nose bilaterally lower extremity strength equal. SKIN: Warm, dry, no laceration, no petechiae, no rashes or lesions. Scores NIH Stroke Scale Level of Conciousness: Alert, keenly responsive Ask month/age: Answers one question correctly, intubated follow commands Open/close eyes, close hand: Performs both tasks correctly Best gaze horizontal: Normal Visual seay: No visual loss Facial palsy: Normal symetrical movement Left arm drift: No drift for full 10 sec Right arm drift: No drift for full 10 sec Left leg drift: No drift for full 10 sec Right leg drift: No drift for full 10 sec Limb ataxia: Absent Sensory on face/arms/legs: Normal, no sensory loss Best language: No aphasia, normal Dysarthria: Normal Extinction or inattention: No abnormality Total NIH Stroke scale score: 1 Course Orders Ordered: ED Orders 05/20/19 20:47 CT head/brain wo con Stat 05/20/19 20:55 EKG-12 Lead Stat 05/20/19 21:14 Complete Blood Count AUTO DIFF Stat Comprehensive Metabolic Panel Stat Magnesium Stat Prolactin Stat Troponin & CK Cardiac Panel Stat 05/20/19 23:15 Urinalysis Sreen (Dip Only) Stat Urine Drug Screen, Rapid Stat Discontinued Medications Sodium Chloride (Normal Saline 0.9%) 1,000 mls @ 1,000 mls/hr IV BOLUS ONE Stop: 05/20/19 22:56 Last Infusion: 05/21/19 00:35 Dose: 0 mls/hr Documented by: Admin: 05/20/19 22:00 Dose: 1,000 mls/hr Documented by: SOLA Levetiracetam 1,000 mg/ Sodium (Chloride) 110 mls @ 440 mls/hr IV NOW ONE Stop: 05/20/19 23:56 Last Infusion: 05/21/19 00:45 Dose: 0 mls/hr Documented by: Admin: 05/21/19 00:34 Dose: 440 mls/hr Documented by: KATHRYN Consultations Time: 00:09 Vital Signs Vital signs: Vital Signs - 8 hr 05/20/19 22:00 05/20/19 23:00 05/21/19 00:00 Temperature Pulse Rate 88 105 H 44 L Respiratory Rate 22 17 23 Blood Pressure Blood Pressure [Left Arm] 167/104 H 150/73 H 186/105 H Pulse Oximetry 94 98 98 05/21/19 00:41 05/21/19 01:19 05/21/19 02:00 Temperature Pulse Rate 48 L 88 85 Respiratory Rate 24 20 Blood Pressure Blood Pressure [Left Arm] 164/81 H 140/73 133/61 Pulse Oximetry 98 98 99 05/21/19 03:02 05/21/19 04:00 05/21/19 04:30 Temperature Pulse Rate 84 82 77 Respiratory Rate 16 17 14 Blood Pressure Blood Pressure [Left Arm] 124/58 L 131/58 L 138/62 Pulse Oximetry 100 98 99 05/21/19 05:25 Temperature 98.3 F Pulse Rate 77 Respiratory Rate 14 Blood Pressure 169/66 H Blood Pressure [Left Arm] Pulse Oximetry 99 MDM - Seizure Lab Data Attestation: I reviewed the patient's lab results. Result diagrams: 05/20/19 21:14 05/20/19 21:14 Labs: Lab Results 05/20/19 05/20/19 05/20/19 Range/Units 21:14 21:14 21:14 WBC 13.1 H (4.5-11.0) X10^3/uL RBC 4.44 (4.0-5.2) X10^6/uL Hgb 12.7 (12.0-16.0) g/dL Hct 38.9 (36-46) % MCV 87.5 (80-100) fL MCH 28.7 (26-34) PG MCHC 32.8 (30-36) % RDW 15.2 H (11.6-14.8) % Plt Count 279 (150-400) X10^3/uL Neut % (Auto) 83.5 H (50-75) % Lymph % (Auto) 10.7 L (25-40) % [place] % (Auto) 5.0 (3-14) % Eos % (Auto) 0.5 L (2-4) % Baso % (Auto) 0.3 (0-2) % Neut # (Auto) 16012 H (6662-1849) /uL Lymph # (Auto) 1400 (4581-4433) /uL [place] # (Auto) 700 (0-900) /uL Eos # (Auto) 100 (0-450) /uL Baso # (Auto) 0 (0-100) /uL Sodium 141 (137-145) mmol/L Potassium 3.9 (3.4-5.1) mmol/L Chloride 104 (98-107) mmol/L Carbon Dioxide 27 (22-32) mmol/L BUN 17 (7-17) mg/dL Creatinine 0.90 (0.52-1.04) mg/dL Estimated GFR > 60.0 (>60) mL/min BUN/Creatinine Ratio 18.9 (6-22) Glucose 99 (80-110) mg/dL Calcium 11.0 H (8.4-10.2) mg/dL Magnesium 2.0 (1.6-2.3) mg/dL Total Bilirubin 0.5 (0.2-1.3) mg/dL AST 36 (14-36) IU/L ALT 26 (9-52) IU/L Alkaline Phosphatase 127 H (38-126) U/L Total Creatine Kinase 347 H (30-135) U/L CK-MB (CK-2) 2.67 H (<2.37) ng/mL CK-MB (CK-2) Rel Index 0.8 L (1.5-5.0) % Troponin I 0.029 (0.01-0.034) ng/mL Total Protein 7.6 (6.3-8.2) g/dL Albumin 4.3 (3.5-5.0) g/dL Globulin 3.3 (1.7-4.1) g/dL Albumin/Globulin Ratio 1.3 (1.0-2.8) Prolactin 8.7 (3.0-18.6) ng/mL Urine Color Urine Appearance Urine pH (4.5-8.0) Ur Specific [place] (1.000-1.035) Urine Protein (Negative) Urine Glucose (UA) (Negative) g/dL Urine Ketones (NEGATIVE) Urine Occult Blood (Negative) Urine Nitrate (Negative) Urine Bilirubin (NEGATIVE) Urine Urobilinogen (0.2) E.U./dL Ur Leukocyte Esterase (NEGATIVE) U Morph 300 ng/mL cutoff (Negative) Ur Oxycodone Screen (Negative) Urine Methadone Screen (Negative) Ur Barbiturates Screen (Negative) U Tricyclic Antidepress (Negative) Ur Phencyclidine Scrn (Negative) Ur Amphetamines Screen (Negative) U Methamphetamines Scrn (Negative) Ur MDMA Scrn (Ecstasy) (Negative) U Benzodiazepines Scrn (Negative) Urine Cocaine Screen (Negative) U Marijuana (THC) Screen (Negative) 05/20/19 05/20/19 Range/Units 23:15 23:15 WBC (4.5-11.0) X10^3/uL RBC (4.0-5.2) X10^6/uL Hgb (12.0-16.0) g/dL Hct (36-46) % MCV (80-100) fL MCH (26-34) PG MCHC (30-36) % RDW (11.6-14.8) % Plt Count (150-400) X10^3/uL Neut % (Auto) (50-75) % Lymph % (Auto) (25-40) % [place] % (Auto) (3-14) % Eos % (Auto) (2-4) % Baso % (Auto) (0-2) % Neut # (Auto) (7568-1229) /uL Lymph # (Auto) (2196-6085) /uL [place] # (Auto) (0-900) /uL Eos # (Auto) (0-450) /uL Baso # (Auto) (0-100) /uL Sodium (137-145) mmol/L Potassium (3.4-5.1) mmol/L Chloride (98-107) mmol/L Carbon Dioxide (22-32) mmol/L BUN (7-17) mg/dL Creatinine (0.52-1.04) mg/dL Estimated GFR (>60) mL/min BUN/Creatinine Ratio (6-22) Glucose (80-110) mg/dL Calcium (8.4-10.2) mg/dL Magnesium (1.6-2.3) mg/dL Total Bilirubin (0.2-1.3) mg/dL AST (14-36) IU/L ALT (9-52) IU/L Alkaline Phosphatase (38-126) U/L Total Creatine Kinase (30-135) U/L CK-MB (CK-2) (<2.37) ng/mL CK-MB (CK-2) Rel Index (1.5-5.0) % Troponin I (0.01-0.034) ng/mL Total Protein (6.3-8.2) g/dL Albumin (3.5-5.0) g/dL Globulin (1.7-4.1) g/dL Albumin/Globulin Ratio (1.0-2.8) Prolactin (3.0-18.6) ng/mL Urine Color Yellow Urine Appearance Clear Urine pH 5.5 (4.5-8.0) Ur Specific [place] 1.025 (1.000-1.035) Urine Protein 3+ H (Negative) Urine Glucose (UA) Negative (Negative) g/dL Urine Ketones 1+ H (NEGATIVE) Urine Occult Blood 1+ H (Negative) Urine Nitrate Negative (Negative) Urine Bilirubin Negative (NEGATIVE) Urine Urobilinogen 0.2 (0.2) E.U./dL Ur Leukocyte Esterase Negative (NEGATIVE) U Morph 300 ng/mL cutoff Negative (Negative) Ur Oxycodone Screen Negative (Negative) Urine Methadone Screen Negative (Negative) Ur Barbiturates Screen Negative (Negative) U Tricyclic Antidepress Negative (Negative) Ur Phencyclidine Scrn Negative (Negative) Ur Amphetamines Screen Negative (Negative) U Methamphetamines Scrn Negative (Negative) Ur MDMA Scrn (Ecstasy) Negative (Negative) U Benzodiazepines Scrn Negative (Negative) Urine Cocaine Screen Negative (Negative) U Marijuana (THC) Screen Positive H (Negative) Point of Care Testing Glucose POC [address] scan - head: Radiologist's impression: PROCEDURE: CT HEAD/BRAIN WO CON INDICATIONS: seizure vs stroke TECHNIQUE: Noncontrast 4.5 mm thick angled axial sections acquired from the foramen magnum to the vertex, with coronal and sagittal reformats. For radiation dose reduction, the following was used: automated exposure control, adjustment of mA and/or kV according to patient size. COMPARISON: None. FINDINGS: Image quality: Excellent. CSF spaces: Basal cisterns are patent. No extra-axial fluid collections. The ventricles are symmetric in size and shape. Brain: No intracranial bleeds or masses. There is a large area of encephalomalacia involving the left frontoparietal lobe underlying previous left parietal cranioplasty. There is associated volume loss and ex vacuo dilatation of the left frontal horn. There is cerebral volume loss for age, with resultant ventricular and sulcal prominen ce. There are periventricular and deep white matter chronic small vessel ischemic changes. There is intracranial internal carotid artery atherosclerosis. Skull and face: Postoperative changes from left parietal cranioplasty. Calvarium and visualized facial bones are otherwise intact, without suspicious lesions. Sinuses: Minimal mucosal thickening of the right maxillary sinus. Remainder of the paranasal sinuses appear clear. Mastoid air cells are well-aerated. IMPRESSION: CT head without acute intracranial abnormalities. 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 Age-related senescent changes. Minimal right maxillary sinus disease. Dictated by: Kong Quinn M.D. on 05/20/2019 at 22:05 ECG Data Attestation: I personally reviewed and interpreted this ECG as follows: Prior ECG tracings: available for review Interpretation: Normal sinus rhythm rate 80 p.r. interval [address] changes no T-wave inversions artifact noted similar to previous EKG MDM Narrative Medical decision making narrative: After about 2-1/2 hours in the ED patient actually had a witnessed seizure. She was shaking unresponsive. She did receive 2 mg of Ativan. This did seem to decrease her respiratory response some. Nasal airway was inserted which did seem to help. As time passed she bec uzair more responsive, but still very sleepy. Dr. Patiño, neurologist at [facility] recommends Keppra 1000 mg IV load and 750 b.i.d.. He states treat her empirically as epilepsy. Does not need an EEG. Don POLLACK, hospitalist updated on patient's symptoms and test results. She is not comfortable accepting new onset seizure patient. Dr. Patiño and Don had a conversation that I was was not part of. Patient will be transferred to [facility] Dr. Garcia hospitalist at [facility] has been updated on patient's symptoms test results Neurology recommendations happily accepts transfer. Patient has not had any further seizures after Keppra and Ativan becoming more awake and appropriate Discharge Plan Departure Patient Disposition: [facility] Clinical Impression: New onset seizure Prescriptions: No Action VITAMIN D (Vitamin D3) 1,000 u PO QDAY Qty: 180 RF: 1 albuterol sulfate 2.5 MG/3 ML solution for nebulization 3 ml INH X1 Qty: 1 RF: 2 furosemide 40 MG tablet 40 mg PO QDAY Qty: 90 RF: 1 metformin [Glucophage] 500 MG tablet 500 mg PO BID Qty: 180 RF: 1 lisinopril 2.5 MG tablet 2.5 mg PO QDAY Qty: 90 RF: 1 famotidine 20 MG tablet 20 mg PO QDAY Qty: 90 RF: 1 Test Strips - Freestyle SEECOM SEE INSTRUCTIONS Qty: 100 RF: 3 montelukast [Singulair] 10 MG tablet 10 mg PO HS Qty: 30 RF: 2 doxycycline monohydrate 100 mg capsule 100 mg PO BID Qty: 14 RF: 0
[2019-05-20] MEDS: LORazepam 2 MG/ML INJ (22:35)
[2019-05-20 23:00] VITALS: BP 150/73; PULSE 105; RESP 17; O2SAT 98
[2019-05-20 23:24] LABS: Appearance Urine UA CLEAR; Bilirubin Urine UA NEGATIVE (NEGATIVE); Color Urine UA YELLOW; Glucose Urine UA NEGATIVE (Negative); Ketones Urine UA 1+ (NEGATIVE); Leukocyte Esterase Urine UA NEGATIVE (NEGATIVE); Nitrite Urine UA NEGATIVE (Negative); Occult Blood Urine UA 1+ (Negative); Protein Urine UA 3+ (Negative); Specific Gravity Urine UA 1.025 (1.000-1.035); Urobilinogen Urine UA 0.2 E.U./dL (0.2)
[2019-05-20 23:25] LABS: pH Urine UA 5.5 (4.5-8.0)
[2019-05-20 23:29] LABS: Ur Creatinine 50 (Normal); Ur Specific Gravity >1.030 (Normal); Urine Tetrahydrocannabinol Positive (Negative); Urine pH 5 (Normal)
[2019-05-20 23:30] LABS: UR Morphine/Opiate cutoff 300 Negative (Negative); Urine Amphetamines Negative (Negative); Urine Barbiturates Negative (Negative); Urine Benzodiazepines Negative (Negative); Urine Cocaine Negative (Negative); Urine MDMA Negative (Negative); Urine Methadone Negative (Negative); Urine Methamphetamines Negative (Negative); Urine Oxycodone Negative (Negative); Urine Phencyclidine Negative (Negative); Urine Tricyclic Antidepressant Negative (Negative)
--- NOTE | 2019-05-20 23:31 | PC.NURSE ---
22:32-Pt found in room noted to be on right side tremulous and unresponsive, Claribel Cole RN and this nurse ensuring safety. Pt suctioned, 2 mg ativan given IV and NPA inserted into left nare. Seizure aprox 6 minutes from start to finish. Pt remains non responsive, 16fr hammonds cath placed, family is now at bedside. 23:20- Pt is now making purposeful movements, and nodding responses. eyes are closed. Family is aware of plan.
[2019-05-21] VITALS (9 sets, daily range): BP systolic 124–186; BP diastolic 58–105; PULSE 44–88; RESP 14–24; TEMP 36.6–36.8; O2SAT 98–100; BMI 34.1
[2019-05-21] MEDS: levETIRAcetam 1,000 MG in SODIUM CHLORIDE 0.9% 100 ML 440 ML IV (00:34)
== END 2019-05-21 05:52 | disposition short-term general hospital (02) ==
PROVIDERS: Emergency Provider Emergency Medicine
DX: R56.9 Unspecified convulsions (principal)
CPT/HCPCS: 36415; 51701; 70450; 80053; 80305; 81003; 82550; 82553; 82962; 83735; 84146; 84484; 85025; 93005; 96361; 96374; 96375; 99285; J1953; J2060

== ENCOUNTER 2019-09-26 09:44 | Emergency (ER) | payer MEDICARE, SELFPAY ==
[2019-09-26] VITALS (12 sets, daily range): BP systolic 149–257; BP diastolic 54–133; PULSE 86–131; RESP 14–45; TEMP 35.9; O2SAT 96–100
--- NOTE | 2019-09-26 10:15 | ED_ITS ---
HPI - Seizure General Chief Complaint: Seizure Stated Complaint: has hx of siezures/had one today Time Seen by Provider: 09/26/19 09:48 Source: patient Mode of arrival: Ambulatory Limitations: no limitations History of Present Illness HPI Narrative: Patient is a 74-year-old female. Was seen in our emergency department of the end of last year for what appeared to be a new onset seizure. She was transferred to an outside facility. Patient states she is on anti seizure medications. She thinks that it is Keppra. She does not know the dose of it however she states she does take it 2 times a day. She states that since the event at the end of last year she has not had any further seizures. She has not followed up with neurology. She states that this morning she was sitting at her computer riding upon 1. She states that she went back to bed and then fell out of bed having a seizure. She states she knew she was having a seizure. She does have left shoulder pain however is able to move her shoulder without problems. No fevers. Currently states that she feels fine. Is eating and drinking. Unsure how long the event lasted. No loss of bowel or bladder. Did not bite her tongue. Related Data Previous Rx's Medication Instructions Recorded VITAMIN D (Vitamin D3) 1,000 u PO QDAY #180 tab 06/17/16 albuterol sulfate 3 ml INH X1 #1 box 08/05/16 famotidine 20 mg PO QDAY #90 tab 01/20/17 furosemide 40 mg PO QDAY #90 tab 01/20/17 lisinopril 2.5 mg PO QDAY #90 tab 01/20/17 metformin [Glucophage] 500 mg PO BID #180 tab 01/20/17 Test Strips - Freestyle str SEECOM SEE INSTRUCTIONS #100 01/21/17 montelukast [Singulair] 10 mg PO HS #30 tab 02/24/17 doxycycline monohydrate 100 mg PO BID #14 cap 08/07/18 Allergies Allergy/AdvReac Type Severity Reaction Status Date / Time codeine Allergy Unknown ITCHING Verified 09/26/19 10:20 morphine Allergy Unknown RASH Verified 09/26/19 10:20 Penicillins Allergy Unknown RASH Verified 09/26/19 10:20 Review of Systems Constitutional Constitutional: Denies fever(s) and Denies lethargy ENT Ears, Nose, Mouth, and Throat: Denies vertigo and Denies disequilibrium Cardiovascular Cardiovascular: Denies chest pain and Denies dyspnea Respiratory Respiratory: Denies dyspnea Gastrointestinal Gastrointestinal: Denies abdominal pain, Denies nausea and Denies vomiting Musculoskeletal Musculoskeletal: Reports arthralgias (Left shoulder) Integumentary/Breasts Skin/Breast: Denies lesions and Denies rash Neurologic Neurologic: Denies confusion, Denies vertigo, Reports seizure-like activity and Denies disequilibrium Psychiatric Psychiatric: Denies confusion Hematologic/Lymphatic Hematologic/Lymphatic: Denies easy bleeding and Denies easy bruising Patient History Medical History Chronic obstructive pulmonary disease (06/17/16) Essential hypertension (06/17/16) Gastroesophageal reflux disease (01/24/16) History of meningioma of the brain (01/24/16) Hypercalcemia (06/17/16) Hyperparathyroidism (01/24/16) Mild persistent asthma without complication (06/17/16) Mixed hyperlipidemia (06/17/16) Mixed stress and urge urinary incontinence (02/24/17) Stage 3 chronic kidney disease (01/24/16) Type 2 diabetes mellitus without complication, without long-term current use of insulin (06/17/16) Vitamin D deficiency (02/24/17) Social History Smoking Status: Former smoker Exam Initial Vital Signs Initial Vital Signs: Vital Signs Temperature 96.7 F L 09/26/19 10:08 Pulse Rate 92 H 09/26/19 10:08 Respiratory Rate 18 09/26/19 10:08 Blood Pressure 201/80 H 09/26/19 10:08 Pulse Oximetry 100 09/26/19 10:08 Const General: cooperative, healthy appearing, comfortable and well developed Limitations: mental status not altered HENWA Head: normal to inspection and normocephalic Resp Effort & Inspection: normal respiratory effort Auscultation: clear to auscultation bilaterally Cardio Rate: regular rate Rhythm: regular rhythm Skin Lesions: no lesions Rashes: no rashes Neuro General: alert and awake Cognition: normal cognition Speech: speech normal Gait: normal gait Motor: muscle tone normal throughout Extrem General: normal to inspection and capillary refill normal Psych Appearance: grossly normal and well kempt Scores GCS Innis coma scale eye opening: Spontaneous Krishan coma scale verbal response: Orientated Krishan coma scale motor response: Obey commands Innis coma scale total score: 15 Course Orders Ordered: ED Orders 09/26/19 11:05 Complete Blood Count AUTO DIFF Stat Comprehensive Metabolic Panel Stat Ethanol (ETOH) Stat Lipase Stat Prolactin Stat 09/26/19 11:55 CT head/brain wo con Stat 09/26/19 15:10 Urinalysis Screen (Dip Only) Stat Urine Microscopic Stat Discontinued Medications Levetiracetam 1,000 mg/ Sodium (Chloride) 110 mls @ 440 mls/hr IV NOW ONE Stop: 09/26/19 11:49 Last Infusion: 09/26/19 12:20 Dose: 0 mls/hr Documented by: Admin: 09/26/19 12:04 Dose: 440 mls/hr Documented by: SOLA Lorazepam (Ativan) 1 mg IV NOW ONE Stop: 09/26/19 11:53 Last Admin: 09/26/19 12:47 Dose: Not Given Documented by: SOLA Vital Signs Vital signs: Vital Signs - 8 hr 09/26/19 10:08 09/26/19 10:34 09/26/19 11:00 Temperature 96.7 F L Pulse Rate 92 H 98 H 96 H Respiratory Rate 18 20 22 Blood Pressure 201/80 H Blood Pressure [Right Arm] 166/77 H 172/74 H Pulse Oximetry 100 96 97 09/26/19 11:46 09/26/19 11:52 09/26/19 12:00 Temperature Pulse Rate 131 H 120 H 99 H Respiratory Rate 38 H 45 H 29 H Blood Pressure Blood Pressure [Right Arm] 257/133 H 198/100 H 197/93 H Pulse Oximetry 100 100 09/26/19 12:30 09/26/19 12:45 09/26/19 13:15 Temperature Pulse Rate 95 H 91 H 93 H Respiratory Rate 24 14 25 H Blood Pressure Blood Pressure [Right Arm] 185/86 H 157/54 H 149/71 H Pulse Oximetry 96 96 97 09/26/19 14:00 Temperature Pulse Rate 86 Respiratory Rate 19 Blood Pressure Blood Pressure [Right Arm] 149/73 H Pulse Oximetry 100 MDM - Seizure Lab Data Attestation: I reviewed the patient's lab results. Result diagrams: 09/26/19 11:05 09/26/19 11:05 Labs: Lab Results 09/26/19 09/26/19 09/26/19 Range/Units 11:05 11:05 15:10 WBC 14.2 H (4.5-11.0) X10^3/uL RBC 4.28 (4.0-5.2) X10^6/uL Hgb 12.4 (12.0-16.0) g/dL Hct 37.8 (36-46) % MCV 88.3 (80-100) fL MCH 29.1 (26-34) PG MCHC 32.9 (30-36) % RDW 13.8 (11.6-14.8) % Plt Count 355 (150-400) X10^3/uL Neut % (Auto) 83.9 H (50-75) % Lymph % (Auto) 9.5 L (25-40) % [place] % (Auto) 5.6 (3-14) % Eos % (Auto) 0.4 L (2-4) % Baso % (Auto) 0.6 (0-2) % Neut # (Auto) 63963 H (4326-6862) /uL Lymph # (Auto) 1300 (3093-4053) /uL [place] # (Auto) 800 (0-900) /uL Eos # (Auto) 100 (0-450) /uL Baso # (Auto) 100 (0-100) /uL Sodium 139 (137-145) mmol/L Potassium 3.9 (3.4-5.1) mmol/L Chloride 107 (98-107) mmol/L Carbon Dioxide 28 (22-32) mmol/L BUN 17 (7-17) mg/dL Creatinine 0.80 (0.52-1.04) mg/dL Estimated GFR > 60.0 (>60) mL/min BUN/Creatinine Ratio 21.3 (6-22) Glucose 158 H (80-110) mg/dL Calcium 10.5 H (8.4-10.2) mg/dL Total Bilirubin 0.3 (0.2-1.3) mg/dL AST 29 (14-36) IU/L ALT 21 (<35) IU/L Alkaline Phosphatase 141 H (38-126) U/L Total Protein 6.9 (6.3-8.2) g/dL Albumin 3.8 (3.5-5.0) g/dL Globulin 3.1 (1.7-4.1) g/dL Albumin/Globulin Ratio 1.2 (1.0-2.8) Lipase 66 (23-300) U/L Prolactin 12.0 (3.0-18.6) ng/mL Urine Color Yellow Urine Appearance Clear Urine pH 6.5 (4.5-8.0) Ur Specific [place] 1.020 (1.000-1.035) Urine Protein 3+ H (Negative) Urine Glucose (UA) Trace H (Negative) g/dL Urine Ketones Negative (NEGATIVE) Urine Occult Blood 1+ H (Negative) Urine Nitrate Negative (Negative) Urine Bilirubin Negative (NEGATIVE) Urine Urobilinogen 0.2 (0.2) E.U./dL Ur Leukocyte Esterase Negative (NEGATIVE) Urine RBC 5-10/hpf H (0-5/HPF) Urine WBC 1-5/hpf (0-5/HPF) Ur Squamous Epith Cells 0-1 /hpf (0-5/HPF) Urine Bacteria Occasional (0-1) (None) Hyaline Casts 5-10/lpf (None) Ur Culture Indicated? Cult not indicated Ethyl Alcohol < 10 ( - 10) mg/dL Imaging Data CT scan - head: Radiologist's Impression: [place] [address] CT Scan Report Signed Patient: Zay Guy#: [id number] : 7Acct:[id number] Age/Sex: 74 / FDate of Service: 09/26/19 Loc: ED Accession Number: [id number] Procedure: CT head/brain wo con Ordering Provider: Gerald Brizuela D.O. PROCEDURE: CT HEAD/BRAIN WO CON INDICATIONS: hx of brain tumor with seizure TECHNIQUE: Noncontrast 4.5 mm thick angled axial sections acquired from the foramen magnum to the vertex, with coronal and sagittal reformats. For radiation dose reduction, the following was used: automated exposure control, adjustment of mA and/or kV according to patient size. COMPARISON: [facility], CT, CT HEAD/BRAIN WO CON, 05/20/2019, 21:21. FINDINGS: Image quality: Excellent. CSF spaces: Basal cisterns are patent. No new extra-axial fluid collections. The ventricles are unchanged in size and shape. Brain: No acute intracranial hemorrhage, mass, or mass effect. Left frontal lobe encephalomalacia is redemonstrated with associated postsurgical changes. Skull and face: Postsurgical changes are demonstrated status post frontotemporal craniectomy. No acute fractures. Sinuses: Visualized sinuses and mastoids are clear. IMPRESSION: 1. Postsurgical changes redemonstrated without definite acute intracranial abnormality. Dictated by: Charles Salas M.D. on 09/26/2019 at 11:41 Approved by: Charles Salas M.D. on 09/26/2019 at 11:45 [facility] Narrative Medical decision making narrative: Patient did have what appeared to be another seizure while emergency department. She did not have an IV of the times she was given 5 mg of Diastat rectal. An IV was started. She was postictal afterwards. She did recover and eventually was alert oriented x3. Head CT shows no acute changes. She was also given Keppra here in the ER. After observation patient states she felt much better. Had another discussion with her and her son at bedside. Does appear that potentially she has not been taking her Keppra as directed. She states that sometimes she takes her morning dose at around noon and then sometimes does not even take her evening dose. She has not seen Neurology since her initial seizure. Informed the patient that it is important that she takes her Keppra as directed. I do feel that instead of change in her medications or increasing her dose that they should make sure that she is taking the 750 2 times a day as directed. She was also informed that she cannot drive. She was instructed that she needed to talk with her primary doctor about a referral to see Neurology. They were given return precautions and follow-up instructions. Both the patient and her son who is at bedside expressed underst anding and agreement plan. Discharge Plan Departure Patient Disposition: Home Clinical Impression: Seizure Instructions: DI for Seizure Disorder -- Adult Activity Restrictions/Additional Instructions: I do recommend that you take all of your medication as directed it is important that you do take the Keppra 2 times a day. I also recommend that you contact your primary doctor about a referral to see Neurology. No driving until cleared by either your primary doctor or a neurologist. Return to the emergency department for any new or worsening symptoms Prescriptions: No Action VITAMIN D (Vitamin D3) 1,000 u PO QDAY Qty: 180 RF: 1 albuterol sulfate 2.5 MG/3 ML solution for nebulization 3 ml INH X1 Qty: 1 RF: 2 furosemide 40 MG tablet 40 mg PO QDAY Qty: 90 RF: 1 metformin [Glucophage] 500 MG tablet 500 mg PO BID Qty: 180 RF: 1 lisinopril 2.5 MG tablet 2.5 mg PO QDAY Qty: 90 RF: 1 famotidine 20 MG tablet 20 mg PO QDAY Qty: 90 RF: 1 Test Strips - Freestyle SEECOM SEE INSTRUCTIONS Qty: 100 RF: 3 montelukast [Singulair] 10 MG tablet 10 mg PO HS Qty: 30 RF: 2 doxycycline monohydrate 100 mg capsule 100 mg PO BID Qty: 14 RF: 0 Referrals: Boy Patiño MD [Primary Care Provider] -
[2019-09-26 11:08] LABS: Add Manual Diff / Slide Review NO; Basophils Absolute Auto 100 /uL (0-100); Basophils Percent Auto 0.6 % (0-2); Eosinophils Absolute Auto 100 /uL (0-450); Eosinophils Percent Auto 0.4 % (2-4); Hematocrit 37.8 % (36-46); Hemoglobin 12.4 g/dL (12.0-16.0); Lymphocytes Absolute Auto 1300 /uL (1100-4500); Lymphocytes Percent Auto 9.5 % (25-40); Mean Corpuscular HGB Conc 32.9 % (30-36); Mean Corpuscular Hemoglobin 29.1 PG (26-34); Mean Corpuscular Volume 88.3 fL (80-100); Monocytes Absolute Auto 800 /uL (0-900); Monocytes Percent Auto 5.6 % (3-14); Neutrophils Absolute Auto 11900 /uL (1500-7000); Neutrophils Percent Auto 83.9 % (50-75); Platelet Count 355 X10^3/uL (150-400); Red Blood Cell Count 4.28 X10^6/uL (4.0-5.2); Red Cell Distribution Width 13.8 % (11.6-14.8); White Blood Cell Count 14.2 X10^3/uL (4.5-11.0)
[2019-09-26 11:20] LABS: Alanine Aminotransferase 21 IU/L (<35); Albumin 3.8 g/dL (3.5-5.0); Albumin Globulin Ratio 1.2 (1.0-2.8); Alkaline Phosphatase 141 U/L (38-126); Aspartate Aminotransferase 29 IU/L (14-36); BUN Creatinine Ratio 21.3 (6-22); Bilirubin Total 0.3 mg/dL (0.2-1.3); Blood Urea Nitrogen 17 mg/dL (7-17); Calcium 10.5 mg/dL (8.4-10.2); Carbon Dioxide 28 mmol/L (22-32); Chloride 107 mmol/L (98-107); Estimated Glomerular Filt Rate > 60.0 mL/min (>60); Ethanol (ETOH) < 10 mg/dL; Globulin 3.1 g/dL (1.7-4.1); Glucose 158 mg/dL (80-110); HEMOLYSIS < 15 (0-50); Lipase 66 U/L (23-300); Potassium 3.9 mmol/L (3.4-5.1); Sodium 139 mmol/L (137-145); Total Protein 6.9 g/dL (6.3-8.2)
--- NOTE | 2019-09-26 11:55 | DI.CT.S_ITS ---
PROCEDURE: CT HEAD/BRAIN WO CON INDICATIONS: hx of brain tumor with seizure TECHNIQUE: Noncontrast 4.5 mm thick angled axial sections acquired from the foramen magnum to the vertex, with coronal and sagittal reformats. For radiation dose reduction, the following was used: automated exposure control, adjustment of mA and/or kV according to patient size. COMPARISON: [facility], CT, CT HEAD/BRAIN WO CON, 05/20/2019, 21:21. FINDINGS: Image quality: Excellent. CSF spaces: Basal cisterns are patent. No new extra-axial fluid collections. The ventricles are unchanged in size and shape. Brain: No acute intracranial hemorrhage, mass, or mass effect. Left frontal lobe encephalomalacia is redemonstrated with associated postsurgical changes. Skull and face: Postsurgical changes are demonstrated status post frontotemporal craniectomy. No acute fractures. Sinuses: Visualized sinuses and mastoids are clear. IMPRESSION: 1. Postsurgical changes redemonstrated without definite acute intracranial abnormality. Dictated by: Charles Salas M.D. on 09/26/2019 at 11:41 Approved by: Charles Salas M.D. on 09/26/2019 at 11:45
[2019-09-26] MEDS: levETIRAcetam 1,000 MG in SODIUM CHLORIDE 0.9% 100 ML 440 ML IV (12:04)
--- NOTE | 2019-09-26 12:35 | PC.NURSE ---
1100: Assumed care of pt. Pt resting in bed with son at side. Seizure pads in place. on cardiac monitoring. Lab in to draw NAD. 1135: [place] pt moaning in room. Pt noted to be seizing upon entering room. Dr Brizuela made aware. pt placed flat, turned on R side. NRB at 15L applied with jaw lift maneuver. pt managing secretions, suction available. Diazepam 5mg given MT. IV access obtained. #22 L shoulder, #20 R hand. seizure lasted about 2.5 minutes. Pt agitated and pulling at lines and face mask. 100% on NRB. placed on NC at 2L and tolerating well. 4638-2620: Pt oriented to person and place. PERRL. purposeful movement and w/d from pain. calming and more cooperative. linens changed and placed in new gown with non skid socks. seizure pads remain in place. BP 197/93 HR 99 96% on 2L NC. Keppra 1G infused. 6092-4604: Pt to and from CT. tolerated well. Son in room. Pt more verbal. MD at bedside to speak with son. Son states he does not know how compliant pt is with her medications and has been spacey lately.
[2019-09-26 15:19] LABS: Appearance Urine UA CLEAR; Bilirubin Urine UA NEGATIVE (NEGATIVE); Color Urine UA YELLOW; Glucose Urine UA TRACE g/dL (Negative); Ketones Urine UA NEGATIVE (NEGATIVE); Leukocyte Esterase Urine UA NEGATIVE (NEGATIVE); Nitrite Urine UA NEGATIVE (Negative); Occult Blood Urine UA 1+ (Negative); Protein Urine UA 3+ (Negative); Urobilinogen Urine UA 0.2 E.U./dL (0.2); pH Urine UA 6.5 (4.5-8.0)
[2019-09-26 15:35] LABS: Bacteria Urine Occasional (0-1); Culture Indicated Urine Cult Not Indicated; Hyaline Casts Urine 5-10/LPF; RBC Urine 5-10/HPF (0-5/HPF); Squamous Epithelial Cell Urine 0-1 /HPF (0-5/HPF); WBC Urine 1-5/HPF (0-5/HPF)
[2019-09-26] MEDS: levETIRAcetam 250 MG TABLET 750 MG PO (16:40)
== END 2019-09-26 16:43 | disposition home or self-care (01) ==
PROVIDERS: Emergency Provider Emergency Medicine; PCP Family Medicine
DX: R56.9 Unspecified convulsions (principal)
CPT/HCPCS: 36415; 70450; 80053; 80320; 81003; 81015; 83690; 84146; 85025; 99291; J1953

== ENCOUNTER 2019-09-26 18:42 | Emergency (ER) | payer MEDICARE, SELFPAY ==
--- NOTE | 2019-09-26 18:46 | ED_ITS ---
HPI - Seizure General Chief Complaint: Seizure Stated Complaint: Seizure Time Seen by Provider: 09/26/19 18:42 Source: EMS Mode of arrival: EMS Limitations: altered mental status History of Present Illness HPI Narrative: 74-year-old female former smoker with history of brain surgery in April and subsequent seizure activity in the aftermath. She is supposed to take Keppra which it sounds like she largely does but may skip some doses. She has a distant history of drinking but nothing ongoing. Patient was discharged about 2 hours ago after an extended visit for evaluation of breakthrough seizure. She had prolonged postictal phase, was loaded with Keppra and had reassuring labs and head CT as well as improvement of clinical picture. She was with family at a local hotel when she was observed to have more possible seizure-type activity. 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 She suffered no injury and is still postictal but guarding her airway upon arrival MD complaint: possible seizure Onset (ago): minute(s) Description of Episode: loss of consciousness Related Data Previous Rx's Medication Instructions Recorded VITAMIN D (Vitamin D3) 1,000 u PO QDAY #180 tab 06/17/16 albuterol sulfate 3 ml INH X1 #1 box 08/05/16 famotidine 20 mg PO QDAY #90 tab 01/20/17 furosemide 40 mg PO QDAY #90 tab 01/20/17 lisinopril 2.5 mg PO QDAY #90 tab 01/20/17 metformin [Glucophage] 500 mg PO BID #180 tab 01/20/17 Test Strips - Freestyle str SEECOM SEE INSTRUCTIONS #100 01/21/17 montelukast [Singulair] 10 mg PO HS #30 tab 02/24/17 doxycycline monohydrate 100 mg PO BID #14 cap 08/07/18 Allergies Allergy/AdvReac Type Severity Reaction Status Date / Time codeine Allergy Unknown ITCHING Verified 09/26/19 10:20 morphine Allergy Unknown RASH Verified 09/26/19 10:20 Penicillins Allergy Unknown RASH Verified 09/26/19 10:20 Review of Systems Review of Systems ROS Unobtainable: Unobtainable due to mental status/LOC Patient History Social History Smoking Status: Former smoker Smoking Status: Former smoker alcohol intake frequency: 0-2 drinks per day Substance Use Type: does not use Exam Narrative Exam Narrative: GENERAL: [74] year old patient appears stated age. Chronically ill. Well-nourished, well-developed patient. Postictal HEAD: Atraumatic. Normocephalic. EYES: Pupils equal round and reactive. Extraocular motions intact. No scleral icterus. No injection or drainage. ENT: Nose without bleeding, purulent drainage. Throat without erythema, tonsillar hypertrophy or exudate. Airway patent. NECK: Trachea midline. Non tender CARDIOVASCULAR: Regular rate and rhythm without murmurs, gallops, or rubs. RESPIRATORY: Clear to auscultation. Breath sounds equal bilaterally. No wheezes, rales, or rhonchi. GASTROINTESTINAL: Abdomen soft, non-tender, nondistended. EXTREMITIES: No edema or joint tenderness. BACK: Nontender without deformity or crepitance. No flank tenderness SKIN: No rash or erythema of visible areas Initial Vital Signs Initial Vital Signs: Vital Signs Temperature 98.1 F 09/26/19 19:10 Pulse Rate 90 09/26/19 19:10 Respiratory Rate 20 09/26/19 19:10 Blood Pressure 199/89 H 09/26/19 19:10 Pulse Oximetry 89 L 09/26/19 19:10 Course Orders Ordered: Sodium Chloride (Normal Saline 0.9%) 1,000 mls @ 150 mls/hr IV CONT KAMRYN Last Admin: 09/26/19 19:40 Dose: 150 mls/hr Documented by: SOLA Discontinued Medications Levetiracetam 1,000 mg/ Sodium (Chloride) 110 mls @ 440 mls/hr IV NOW ONE Stop: 09/26/19 20:56 Last Infusion: 09/26/19 21:50 Dose: 0 mls/hr Documented by: Admin: 09/26/19 21:19 Dose: 440 mls/hr Documented by: SOLA Fosphenytoin Sodium 1,400 mg/ (Sodium Chloride) 128 mls @ 256 mls/hr IV NOW ONE Stop: 09/26/19 22:08 Last Admin: 09/26/19 23:14 Dose: Not Given Documented by: SOLA Phenytoin 1,400 mg/ Sodium (Chloride) 128 mls @ 128 mls/hr IV NOW ONE Stop: 09/27/19 00:28 Last Infusion: 09/27/19 03:00 Dose: 128 mls/hr Documented by: Admin: 09/27/19 01:21 Dose: 128 mls/hr Documented by: JOSEFINA Reevaluation(s) Reevaluation #1: called to see patient with apparent seizure activity. She had been awake and talking to her family and she stopped and became unresponsive. She had no generalized shaking, just checked out. This lasted about 45 seconds and she came to rapidly. This has happened a few times now. WIth return to baseline between episodes Consultations Consultation #1: call to neuro at [facility] to discuss case given her history there. 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 He recommended Phosphenytoin. [facility] has no beds. [place] has no beds. Call placed to [facility]. Dr. Agarwal happy to accept, after we call Neurology. Dr. Guthrie is on for neuro and she is happy to be involved in consult. No new recommendations Vital Signs Vital signs: Vital Signs - 8 hr 09/26/19 20:30 09/26/19 21:30 09/26/19 22:30 Pulse Rate 86 81 85 Respiratory Rate 22 22 20 Blood Pressure [Right Arm] 186/89 H 172/81 H 189/91 H Pulse Oximetry 99 99 99 09/27/19 02:35 Pulse Rate 80 Respiratory Rate Blood Pressure [Right Arm] 146/77 H Pulse Oximetry 97 MDM - Seizure Lab Data Result diagrams: 09/26/19 15:10 09/26/19 15:10 Labs: Lab Results 09/26/19 09/26/19 09/26/19 Range/Units 15:10 15:10 15:10 WBC 14.4 H (4.5-11.0) X10^3/uL RBC 4.15 (4.0-5.2) X10^6/uL Hgb 12.1 (12.0-16.0) g/dL Hct 36.9 (36-46) % MCV 89.0 (80-100) fL MCH 29.1 (26-34) PG MCHC 32.7 (30-36) % RDW 13.9 (11.6-14.8) % Plt Count 362 (150-400) X10^3/uL Neut % (Auto) 76.6 H (50-75) % Lymph % (Auto) 13.6 L (25-40) % [place] % (Auto) 8.5 (3-14) % Eos % (Auto) 0.7 L (2-4) % Baso % (Auto) 0.6 (0-2) % Neut # (Auto) 29535 H (5108-3156) /uL Lymph # (Auto) 2000 (4989-0754) /uL [place] # (Auto) 1200 H (0-900) /uL Eos # (Auto) 100 (0-450) /uL Baso # (Auto) 100 (0-100) /uL Sodium 141 (137-145) mmol/L Potassium 3.9 (3.4-5.1) mmol/L Chloride 105 (98-107) mmol/L Carbon Dioxide 31 (22-32) mmol/L BUN 15 (7-17) mg/dL Creatinine 0.90 (0.52-1.04) mg/dL Estimated GFR > 60.0 (>60) mL/min BUN/Creatinine Ratio 16.7 (6-22) Glucose 126 H (80-110) mg/dL Lactate (0.7-2.1) mmol/L Calcium 10.5 H (8.4-10.2) mg/dL Magnesium 2.1 (1.6-2.3) mg/dL TSH 1.98 (0.47-4.68) uIU/mL Prolactin 15.3 (3.0-18.6) ng/mL U Opiates 300ng/mL cut (Negative) Ur Oxycodone Screen (Negative) Urine Methadone Screen (Negative) Ur Barbiturates Screen (Negative) U Tricyclic Antidepress (Negative) Ur Phencyclidine Scrn (Negative) Ur Amphetamines Screen (Negative) U Methamphetamines Scrn (Negative) Ur MDMA Scrn (Ecstasy) (Negative) U Benzodiazepines Scrn (Negative) Urine Cocaine Screen (Negative) U Marijuana (THC) Screen (Negative) Ethyl Alcohol ( - 10) mg/dL 09/26/19 09/26/19 09/26/19 Range/Units 15:10 15:10 15:10 WBC (4.5-11.0) X10^3/uL RBC (4.0-5.2) X10^6/uL Hgb (12.0-16.0) g/dL Hct (36-46) % MCV (80-100) fL MCH (26-34) PG MCHC (30-36) % RDW (11.6-14.8) % Plt Count (150-400) X10^3/uL Neut % (Auto) (50-75) % Lymph % (Auto) (25-40) % [place] % (Auto) (3-14) % Eos % (Auto) (2-4) % Baso % (Auto) (0-2) % Neut # (Auto) (9584-2115) /uL Lymph # (Auto) (0909-1714) /uL [place] # (Auto) (0-900) /uL Eos # (Auto) (0-450) /uL Baso # (Auto) (0-100) /uL Sodium (137-145) mmol/L Potassium (3.4-5.1) mmol/L Chloride (98-107) mmol/L Carbon Dioxide (22-32) mmol/L BUN (7-17) mg/dL Creatinine (0.52-1.04) mg/dL Estimated GFR (>60) mL/min BUN/Creatinine Ratio (6-22) Glucose (80-110) mg/dL Lactate 1.3 (0.7-2.1) mmol/L Calcium (8.4-10.2) mg/dL Magnesium (1.6-2.3) mg/dL TSH (0.47-4.68) uIU/mL Prolactin (3.0-18.6) ng/mL U Opiates 300ng/mL cut Negative (Negative) Ur Oxycodone Screen Negative (Negative) Urine Methadone Screen Negative (Negative) Ur Barbiturates Screen Negative (Negative) U Tricyclic Antidepress Negative (Negative) Ur Phencyclidine Scrn Negative (Negative) Ur Amphetamines Screen Negative (Negative) U Methamphetamines Scrn Negative (Negative) Ur MDMA Scrn (Ecstasy) Negative (Negative) U Benzodiazepines Scrn Negative (Negative) Urine Cocaine Screen Negative (Negative) U Marijuana (THC) Screen Positive H (Negative) Ethyl Alcohol < 10 ( - 10) mg/dL Point of Care Testing Glucose POC 113 Critical Care Time Critical Care Time Critical Care Time: Yes Total Critical Care Time: 35 Attestation: The high probability of a clinically significant, sudden or life threatening deterioration of theneurosystem(s) required my full and direct attention, intervention and personal management. The aggregate critical care time was [35] minutes. This time is in addition to time spent performing reported procedures but includes the following: [x] Data Review and interpretation [x] Patient assessment and monitoring of vital signs x[] Documentation [x] Medication orders and management Discharge Plan Departure Patient Disposition: General Acute Hospital Clinical Impression: Breakthrough seizure Prescriptions: No Action VITAMIN D (Vitamin D3) 1,000 u PO QDAY Qty: 180 RF: 1 albuterol sulfate 2.5 MG/3 ML solution for nebulization 3 ml INH X1 Qty: 1 RF: 2 furosemide 40 MG tablet 40 mg PO QDAY Qty: 90 RF: 1 metformin [Glucophage] 500 MG tablet 500 mg PO BID Qty: 180 RF: 1 lisinopril 2.5 MG tablet 2.5 mg PO QDAY Qty: 90 RF: 1 famotidine 20 MG tablet 20 mg PO QDAY Qty: 90 RF: 1 Test Strips - Freestyle SEECOM SEE INSTRUCTIONS Qty: 100 RF: 3 montelukast [Singulair] 10 MG tablet 10 mg PO HS Qty: 30 RF: 2 doxycycline monohydrate 100 mg capsule 100 mg PO BID Qty: 14 RF: 0 Referrals: Boy Patiño MD [Primary Care Provider] -
[2019-09-26 19:08] LABS: Add Manual Diff / Slide Review NO; Basophils Absolute Auto 100 /uL (0-100); Basophils Percent Auto 0.6 % (0-2); Eosinophils Absolute Auto 100 /uL (0-450); Eosinophils Percent Auto 0.7 % (2-4); Hematocrit 36.9 % (36-46); Hemoglobin 12.1 g/dL (12.0-16.0); Lymphocytes Absolute Auto 2000 /uL (1100-4500); Lymphocytes Percent Auto 13.6 % (25-40); Mean Corpuscular HGB Conc 32.7 % (30-36); Mean Corpuscular Hemoglobin 29.1 PG (26-34); Monocytes Absolute Auto 1200 /uL (0-900); Monocytes Percent Auto 8.5 % (3-14); Neutrophils Absolute Auto 11000 /uL (1500-7000); Neutrophils Percent Auto 76.6 % (50-75); Platelet Count 362 X10^3/uL (150-400); Red Blood Cell Count 4.15 X10^6/uL (4.0-5.2); Red Cell Distribution Width 13.9 % (11.6-14.8); White Blood Cell Count 14.4 X10^3/uL (4.5-11.0)
[2019-09-26 19:10] VITALS: BP 199/89; PULSE 90; RESP 20; TEMP 36.7; O2SAT 89; BMI 29.2
[2019-09-26 19:14] LABS: UR Morphine/Opiate cutoff 300 Negative (Negative); Ur Creatinine Normal (Normal); Ur Specific Gravity Normal (Normal); Urine Amphetamines Negative (Negative); Urine Barbiturates Negative (Negative); Urine Benzodiazepines Negative (Negative); Urine Cocaine Negative (Negative); Urine MDMA Negative (Negative); Urine Methadone Negative (Negative); Urine Methamphetamines Negative (Negative); Urine Oxycodone Negative (Negative); Urine Phencyclidine Negative (Negative); Urine Tricyclic Antidepressant Negative (Negative); Urine pH Normal (Normal)
[2019-09-26 19:15] LABS: Urine Tetrahydrocannabinol Positive (Negative)
[2019-09-26 19:20] LABS: Ethanol (ETOH) < 10 mg/dL
[2019-09-26 19:21] LABS: BUN Creatinine Ratio 16.7 (6-22); Blood Urea Nitrogen 15 mg/dL (7-17); Calcium 10.5 mg/dL (8.4-10.2); Carbon Dioxide 31 mmol/L (22-32); Chloride 105 mmol/L (98-107); Estimated Glomerular Filt Rate > 60.0 mL/min (>60); Glucose 126 mg/dL (80-110); HEMOLYSIS < 15 (0-50); Magnesium 2.1 mg/dL (1.6-2.3); Potassium 3.9 mmol/L (3.4-5.1); Sodium 141 mmol/L (137-145)
[2019-09-26 19:23] LABS: Lactate (Lactic Acid) 1.3 mmol/L (0.7-2.1)
[2019-09-26 19:37] LABS: Prolactin 15.3 ng/mL (3.0-18.6)
[2019-09-26] MEDS: SODIUM CHLORIDE 0.9% 1,000 ML 150 ML IV (19:40)
--- NOTE | 2019-09-26 19:58 | PC.NURSE ---
1844: Pt arrived via EMS after being DC'd a few hours ago. Pt was at a hotel in [facility] and had a period of rigidity and staring off into space and couldnt speak arrived awake and drowsy. PERRL. W/D from pain. Managing her own secretions. suction at bedside. O2 applied for 89% sat. 20G LAC. labs drawn. seizure pads in place.
[2019-09-26 20:04] LABS: Thyroid Stimulating Hormone 1.98 uIU/mL (0.47-4.68)
[2019-09-26 20:30] VITALS: BP 186/89; PULSE 86; RESP 22; O2SAT 99
--- NOTE | 2019-09-26 20:42 | PC.NURSE ---
2041: Checking on pt. change in mental status. Pt making eye contact with RN and looking around room, responsive to voice and her name, withdraws from pain. will not answer any RN questions. unable to follow simple commands. about 25 min ago family was visiting in room and pt was interacting and speaking to them and holding conversation appropriately. Dr Mcbride made aware of change, no new orders at this time.
[2019-09-26] MEDS: levETIRAcetam 1,000 MG in SODIUM CHLORIDE 0.9% 100 ML 440 ML IV (21:19)
[2019-09-26 21:30] VITALS: BP 172/81; PULSE 81; RESP 22; O2SAT 99
--- NOTE | 2019-09-26 21:34 | PC.NURSE ---
Pt with 1g Keppra infusing at this time. Pt appears to be sleeping. rousable to voice. HR 82 BP 179/83
[2019-09-26 22:30] VITALS: BP 189/91; PULSE 85; RESP 20; O2SAT 99
[2019-09-27] MEDS: SODIUM CHLORIDE 0.9% IV (01:21)
[2019-09-27] MEDS: PHENYTOIN IV (01:21)
[2019-09-27 02:35] VITALS: BP 146/77; PULSE 80; O2SAT 97
== END 2019-09-27 04:15 | disposition short-term general hospital (02) ==
PROVIDERS: Emergency Provider Emergency Medicine; PCP Family Medicine
DX: G40.919 Epilepsy, unspecified, intractable, without status epilepticus (principal)
CPT/HCPCS: 36415; 70450; 80048; 80053; 80305; 80320; 81003; 81015; 82962; 83605; 83690; 83735; 84146; 84443; 85025; 96361; 96365; 96366; 96367; 99284; 99285; 99291; J1165; J1953

== ENCOUNTER 2021-09-26 01:02 | Emergency (ER) | payer MEDICARE, SELFPAY ==
[2021-09-26] VITALS (27 sets, daily range): BP systolic 168–216; BP diastolic 74–95; PULSE 52–86; RESP 16–41; TEMP 36.2–36.7; O2SAT 86–100
--- NOTE | 2021-09-26 01:11 | DI.RAD.S_ITS ---
PROCEDURE: XR CHEST 1V INDICATIONS: Shortness of breath TECHNIQUE: One view of the chest was acquired. COMPARISON: [facility], CR, XR CHEST 2V, 08/07/2018, 19:32. FINDINGS: Surgical changes and devices: None. Lungs and pleura: Lungs are clear. No pleural effusions or pneumothorax. Mediastinum: Mediastinal contours appear normal. Heart size is normal. Bones and chest wall: No suspicious bony lesions. Overlying soft tissues appear unremarkable. IMPRESSION: No acute process. Dictated by: Addison Coronado M.D. on 09/26/2021 at 1:29 Approved by: Addison Coronado M.D. on 09/26/2021 at 1:30
--- NOTE | 2021-09-26 01:19 | ED_ITS ---
HPI - General Adult <Gerald Brizuela DO - Last Filed: 09/27/21 17:52> General Chief complaint: Shortness of Breath/Dyspnea Stated complaint: sob Time Seen by Provider: 09/26/21 01:08 Source: patient Mode of arrival: EMS Limitations: no limitations History of Present Illness HPI narrative: Patient is a 76-year-old female. She has a history of COPD. Also has a history of asthma. History of high blood pressure and seizures. Was brought in by EMS for was initially stated was shortness of breath concerns for pneumonia. Patient states that during the day yesterday she had a. Shortness of breath but that seem to resolve. She is on oxygen by nasal cannula at all times at home. She states that last evening there was a an issue with her oxygen concentrator. She states that was not putting out any oxygen. Her family members who normally stay with her were out drinking when they came home they were unable to fix the machine. She is unsure as to how long she went without oxygen tomorrow was potentially up to 30 minutes. She became very exhausted. EMS was contacted and she was brought to the emergency department. She denies chest pain. No fevers. No cough. She does feel better after being on the oxygen from EMS. She does have a history of a brain tumor requiring resection. This is caused issues with seizures. She states she has had a headache for the past several weeks if not longer. Related Data Previous Rx's Medication Instructions Recorded VITAMIN D (Vitamin D3) 1,000 u PO QDAY #180 tab 06/17/16 albuterol sulfate 3 ml INH X1 #1 box 08/05/16 famotidine 20 mg tablet 20 mg PO QDAY #90 tab 01/20/17 furosemide 40 mg tablet 40 mg PO QDAY #90 tab 01/20/17 lisinopril 2.5 mg tablet 2.5 mg PO QDAY #90 tab 01/20/17 metformin 500 mg tablet 500 mg PO BID #180 tab 01/20/17 (Glucophage) Test Strips - Freestyle str SEECOM SEE INSTRUCTIONS #100 01/21/17 montelukast 10 mg tablet 10 mg PO HS #30 tab 02/24/17 (Singulair) doxycycline monohydrate 100 mg 100 mg PO BID #14 cap 08/07/18 capsule Allergies Allergy/AdvReac Type Severity Reaction Status Date / Time codeine Allergy Unknown ITCHING Verified 09/26/19 10:20 morphine Allergy Unknown RASH Verified 09/26/19 10:20 Penicillins Allergy Unknown RASH Verified 09/26/19 10:20 Review of Systems <Gerald Brizuela DO - Last Filed: 09/27/21 17:52> Review of Systems ROS Unobtainable: All systems reviewed & are unremarkable except as noted in HPI and below Patient History <Gerald Brizuela DO - Last Filed: 09/27/21 17:52> Medical History (Updated 09/26/21 @ 05:20 by Gerald Brizuela DO) Chronic obstructive pulmonary disease (06/17/16) Essential hypertension (06/17/16) Gastroesophageal reflux disease (01/24/16) History of meningioma of the brain (01/24/16) Hypercalcemia (06/17/16) Hyperparathyroidism (01/24/16) Mild persistent asthma without complication (06/17/16) Mixed hyperlipidemia (06/17/16) Mixed stress and urge urinary incontinence (02/24/17) Stage 3 chronic kidney disease (01/24/16) Type 2 diabetes mellitus without complication, without long-term current use of insulin (06/17/16) Vitamin D deficiency (02/24/17) Surgical History Status post hysterectomy Family History Grandfather Cancer Grandmother Stroke Mother Cancer Other Chronic obstructive pulmonary disease Essential hypertension Gastroesophageal reflux disease Hypercalcemia Mild persistent asthma without complication Mixed hyperlipidemia Mixed stress and urge urinary incontinence Type 2 diabetes mellitus without complication, without long-term current use of insulin Vitamin D deficiency Social History Smoking Status: Former smoker Smoking Status: Former smoker alcohol intake frequency: 0-2 drinks per day Substance Use Type: does not use Exam <Gerald Brizuela DO - Last Filed: 09/27/21 17:52> Initial Vital Signs Initial Vital Signs: Vital Signs Pulse Rate 73 09/26/21 01:23 Respiratory Rate 22 09/26/21 01:23 Pulse Oximetry 99 09/26/21 01:23 HENMT Head: normal to inspection and normocephalic Resp Effort & Inspection: not labored and tachypneic Auscultation: clear to auscultation bilaterally Cardio Rate: regular rate Rhythm: regular rhythm GI Palpation: soft and No tender Skin General: no rashes or lesions noted Neuro General: patient alert and patient awake Extrem General: capillary refill normal Psych Appearance: grossly normal <DO Krystal Kumar Last Filed: 09/26/21 18:11> Initial Vital Signs Initial Vital Signs: Vital Signs Pulse Rate 73 09/26/21 01:23 Respiratory Rate 22 09/26/21 01:23 Pulse Oximetry 99 09/26/21 01:23 Course <DO Krystal Poon Last Filed: 09/27/21 17:52> Orders Ordered: Discontinued Medications Acetaminophen (Acetaminophen 325 Mg Tablet) 975 mg PO NOW ONE Stop: 09/26/21 07:49 Last Admin: 09/26/21 08:01 Dose: 975 mg Documented by: SOLA Levetiracetam (Levetiracetam 250 Mg Tablet) 750 mg PO NOW ONE Stop: 09/26/21 11:02 Last Admin: 09/26/21 11:36 Dose: 750 mg Documented by: SOLA Lidocaine (Remove Lidocaine Patch) 1 each TOP BEDTIME ONE Stop: 09/26/21 06:57 Last Admin: 09/26/21 08:01 Dose: Not Given Documented by: SOLA Lidocaine (Lidocaine Patch 1 Each Adh..Patch) 1 each TOP NOW ONE Stop: 09/26/21 07:02 Last Admin: 09/26/21 07:31 Dose: 1 each Documented by: SOLA Phenytoin Sodium (Phenytoin Er 100 Mg Capsule) 100 mg PO DAILY KAMRYN Last Admin: 09/26/21 11:36 Dose: 100 mg Documented by: SOLA Vital Signs Vital signs: Vital Signs - 8 hr 09/26/21 10:30 09/26/21 13:16 09/26/21 13:17 Temperature Pulse Rate 79 66 Respiratory Rate 25 H Blood Pressure Pulse Oximetry 86 L 99 09/26/21 13:18 Temperature 97.1 F L Pulse Rate 64 Respiratory Rate Blood Pressure 168/74 H Pulse Oximetry 99 <DO Krystal Kumar Last Filed: 09/26/21 18:11> Orders Ordered: Discontinued Medications Acetaminophen (Acetaminophen 325 Mg Tablet) 975 mg PO NOW ONE Stop: 09/26/21 07:49 Last Admin: 09/26/21 08:01 Dose: 975 mg Documented by: SOLA Levetiracetam (Levetiracetam 250 Mg Tablet) 750 mg PO NOW ONE Stop: 09/26/21 11:02 Last Admin: 09/26/21 11:36 Dose: 750 mg Documented by: SOLA Lidocaine (Remove Lidocaine Patch) 1 each TOP BEDTIME ONE Stop: 09/26/21 06:57 Last Admin: 09/26/21 08:01 Dose: Not Given Documented by: SOLA Lidocaine (Lidocaine Patch 1 Each Adh..Patch) 1 each TOP NOW ONE Stop: 09/26/21 07:02 Last Admin: 09/26/21 07:31 Dose: 1 each Documented by: SOLA Phenytoin Sodium (Phenytoin Er 100 Mg Capsule) 100 mg PO DAILY KAMRYN Last Admin: 09/26/21 11:36 Dose: 100 mg Documented by: SOLA Vital Signs Vital signs: Vital Signs - 8 hr 09/26/21 10:30 09/26/21 13:16 09/26/21 13:17 Temperature Pulse Rate 79 66 Respiratory Rate 25 H Blood Pressure Pulse Oximetry 86 L 99 09/26/21 13:18 Temperature 97.1 F L Pulse Rate 64 Respiratory Rate Blood Pressure 168/74 H Pulse Oximetry 99 Medical Decision Making <Gerald Brizuela DO - Last Filed: 09/27/21 17:52> Lab Data Lab results reviewed: Yes I reviewed the patient's lab results. Result diagrams: 09/26/21 01:15 09/26/21 01:15 Labs: Lab Results 09/26/21 09/26/21 09/26/21 Range/Units 01:15 01:15 01:25 WBC 13.9 H (4.5-11.0) X10^3/uL RBC 3.80 L (4.0-5.2) X10^6/uL Hgb 11.2 L (12.0-16.0) g/dL Hct 34.5 L (36-46) % MCV 91.0 (80-100) fL MCH 29.6 (26-34) PG MCHC 32.6 (30-36) % RDW 13.4 (11.6-14.8) % Plt Count 261 (150-400) X10^3/uL Neut % (Auto) 82.1 H (50-75) % Lymph % (Auto) 8.8 L (25-40) % [place] % (Auto) 6.7 (3-14) % Eos % (Auto) 1.7 L (2-4) % Baso % (Auto) 0.7 (0-2) % Neut # (Auto) 77413 H (7311-6732) /uL Lymph # (Auto) 1200 (6984-2314) /uL [place] # (Auto) 900 (0-900) /uL Eos # (Auto) 200 (0-450) /uL Baso # (Auto) 100 (0-100) /uL Sodium 139 (137-145) mmol/L Potassium 4.4 (3.4-5.1) mmol/L Chloride 103 (98-107) mmol/L Carbon Dioxide 37 H (22-32) mmol/L BUN 26 H (7-17) mg/dL Creatinine 0.99 (0.52-1.04) mg/dL Estimated GFR 54.7 L (>60) mL/min BUN/Creatinine Ratio 26.3 H (6-22) Glucose 115 H (80-110) mg/dL Calcium 10.1 (8.4-10.2) mg/dL Total Bilirubin 0.3 (0.2-1.3) mg/dL AST 25 (14-36) IU/L ALT 20 (<35) IU/L Alkaline Phosphatase 101 (38-126) U/L Total Creatine Kinase 30 (30-135) U/L CK-MB (CK-2) TNP CK-MB (CK-2) Rel Index TNP Troponin I 0.013 (0.01-0.034) ng/mL Total Protein 6.8 (6.3-8.2) g/dL Albumin 3.9 (3.5-5.0) g/dL Globulin 2.9 (1.7-4.1) g/dL Albumin/Globulin Ratio 1.3 (1.0-2.8) Lipase 75 (23-300) U/L Procalcitonin 0.09 (<0.5) ng/mL SARS-CoV-2 (PCR) Negative (Negative) Imaging Data Chest x-ray: Radiologist's Impression: [address] [address] XRay Report Signed Patient: Ivan Guy MR#: [id number] : 1945 Acct:[id number] Age/Sex: 76 / F Date of Service: 09/26/21 Loc: ED Accession Number: [id number] ?? Procedure: XR chest 1V Ordering Provider: Gerald Brizuela D.O. PROCEDURE:? XR CHEST 1V ? INDICATIONS:? Shortness of breath ? TECHNIQUE:? One view of the chest was acquired.? ? COMPARISON:? [facility], CR, XR CHEST 2V, 08/07/2018, 19:32. ? FINDINGS:? ? Surgical changes and devices:? None.? ? Lungs and pleura:? Lungs are clear.? No pleural effusions or pneumothorax.? ? Mediastinum:? Mediastinal contours appear normal.? Heart size is normal.? ? Bones and chest wall:? No suspicious bony lesions.? Overlying soft tissues appear unremarkable.? ? IMPRESSION:? No acute process. ? ? Dictated by: Addison Coronado M.D. on 09/26/2021 at 1:29 ? ? Approved by: Addison Coronado M.D. on 09/26/2021 at 1:30?? CT scan - head: Radiologist's Impression: [address] [address] [address] Scan Report Signed Patient: Ivan Guy MR#: [id number] : 1945 Acct:[id number] Age/Sex: 76 / F Date of Service: 09/26/21 Loc: ED Accession Number: [id number] ?? Procedure: CT head/brain wo con Ordering Provider: Gerald Brizuela D.O. PROCEDURE:? CT HEAD/BRAIN WO CON ? INDICATIONS:? history of brain tumor, seizures, with headache ? TECHNIQUE:? Noncontrast 4.5 mm thick angled axial sections acquired from the foramen magnum to the vertex, with coronal and sagittal reformats.? For radiation dose reduction, the following was used:? automated exposure control, adjustment of mA and/or kV according to patient size.? ? COMPARISON:? [facility], CT, CT HEAD/BRAIN WO CON, 09/26/2019, 12:21. ? FINDINGS:? Image quality:? Excellent.? ? CSF spaces:? Basal cisterns are patent.? No extra-axial fluid collections.? The ventricles are symmetric in size and shape.? ? Brain:? No acute intracranial bleeds or masses.? Resection cavity within the left frontal lobe, as before.? There is cerebral volume loss for age, with resultant ventricular and sulcal prominence.? There are periventricular and deep white matter chronic small vessel ischemic changes.? There is intracranial internal carotid artery atherosclerosis.? ? Skull and face:? Left frontal craniectomy.? Calvarium and visualized facial bones otherwise appear intact, without suspicious lesions.? ? Sinuses:? Visualized sinuses and mastoids are clear.? ? IMPRESSION:? 1. Postsurgical sequelae. 2. No acute intracranial abnormality.? ? ? Dictated by: Addison Coronado M.D. on 09/26/2021 at 1:58 ? ? Approved by: Addison Coronado M.D. on 09/26/2021 at 1:59 ECG Data Attestation: I personally reviewed and interpreted this ECG as follows: Interpretation: Sinus rhythm Ventricular rate is 70 for Normal axis Normal QRS Normal QTC Nonspecific ST T wave changes MDM Narrative Medical decision making narrative: Patient feels better after having been on the oxygen. She does have a leukocytosis however there is no other indication of pneumonia. No indication for antibiotics. Patient no longer hypoxic. Has clear lung exam. Head CT was ordered because of her long history her headaches. There is no acute pathology of the head CT. Patient cannot be discharged given [place] for her to be transported with. Was kept here in the emergency department until disposition can be finalized. Care turned over to Dr. Meneses for disposition. <Aminta Meneses, DO - Last Filed: 09/26/21 18:11> Lab Data Labs: Lab Results 09/26/21 09/26/21 09/26/21 Range/Units 01:15 01:15 01:25 WBC 13.9 H (4.5-11.0) X10^3/uL RBC 3.80 L (4.0-5.2) X10^6/uL Hgb 11.2 L (12.0-16.0) g/dL Hct 34.5 L (36-46) % MCV 91.0 (80-100) fL MCH 29.6 (26-34) PG MCHC 32.6 (30-36) % RDW 13.4 (11.6-14.8) % Plt Count 261 (150-400) X10^3/uL Neut % (Auto) 82.1 H (50-75) % Lymph % (Auto) 8.8 L (25-40) % [place] % (Auto) 6.7 (3-14) % Eos % (Auto) 1.7 L (2-4) % Baso % (Auto) 0.7 (0-2) % Neut # (Auto) 20475 H (5456-8841) /uL Lymph # (Auto) 1200 (4749-3245) /uL [place] # (Auto) 900 (0-900) /uL Eos # (Auto) 200 (0-450) /uL Baso # (Auto) 100 (0-100) /uL Sodium 139 (137-145) mmol/L Potassium 4.4 (3.4-5.1) mmol/L Chloride 103 (98-107) mmol/L Carbon Dioxide 37 H (22-32) mmol/L BUN 26 H (7-17) mg/dL Creatinine 0.99 (0.52-1.04) mg/dL Estimated GFR 54.7 L (>60) mL/min BUN/Creatinine Ratio 26.3 H (6-22) Glucose 115 H (80-110) mg/dL Calcium 10.1 (8.4-10.2) mg/dL Total Bilirubin 0.3 (0.2-1.3) mg/dL AST 25 (14-36) IU/L ALT 20 (<35) IU/L Alkaline Phosphatase 101 (38-126) U/L Total Creatine Kinase 30 (30-135) U/L CK-MB (CK-2) TNP CK-MB (CK-2) Rel Index TNP Troponin I 0.013 (0.01-0.034) ng/mL Total Protein 6.8 (6.3-8.2) g/dL Albumin 3.9 (3.5-5.0) g/dL Globulin 2.9 (1.7-4.1) g/dL Albumin/Globulin Ratio 1.3 (1.0-2.8) Lipase 75 (23-300) U/L Procalcitonin 0.09 (<0.5) ng/mL SARS-CoV-2 (PCR) Negative (Negative) MDM Narrative Medical decision making narrative: Patient feels better after having been on the oxygen. She does have a leukocytosis however there is no other indication of pneumonia. No indication for antibiotics. Patient no longer hypoxic. Has clear lung exam. Head CT was ordered because of her long history her headaches. There is no acute pathology of the head CT. Patient cannot be discharged given the [place] for her to be transported with. Was kept here in the emergency department until disposition can be finalized. Care turned over to Dr. Meneses for disposition. I received sign-out from Dr. Brizuela seen and evaluated patient. She overall appears comfortable and well. Respiratory has been involved she is set up with [facility] home oxygen. We have arranged for home portable oxygen tank for her. [facility] will go out to the residence and make sure the oxygen concentrator is also working appropriately. We are waiting for family to pick her up. They should be getting off the [place] at 12:55 p.m. Family has still not arrived to pharmacy picking tech patient at 3:00 p.m. well fare check has been called. Family did show up around 4:00 p.m. to take patient home. Discharge Plan Departure Patient Disposition: Home Clinical Impression: Shortness of breath Instructions: DI for Shortness of Breath Activity Restrictions/Additional Instructions: It is important that you continue to take all of your medications as directed. You workup. Emergency department is very reassuring. Your head CT does not show any signs of new issues. Contact your primary doctor for a follow-up. Return to the emergency department for any new or worsening symptoms. Prescriptions: No Action VITAMIN D (Vitamin D3) 1,000 u PO QDAY Qty: 180 1RF albuterol sulfate 2.5 MG/3 ML solution for nebulization 3 ml INH X1 Qty: 1 2RF furosemide 40 MG tablet 40 mg PO QDAY Qty: 90 1RF metformin [Glucophage] 500 MG tablet 500 mg PO BID Qty: 180 1RF lisinopril 2.5 MG tablet 2.5 mg PO QDAY Qty: 90 1RF famotidine 20 MG tablet 20 mg PO QDAY Qty: 90 1RF Test Strips - Freestyle SEECOM SEE INSTRUCTIONS Qty: 100 3RF montelukast [Singulair] 10 MG tablet 10 mg PO HS Qty: 30 2RF doxycycline monohydrate 100 mg capsule 100 mg PO BID Qty: 14 0RF Referrals: Boy Patiño MD [Primary Care Provider] -
--- NOTE | 2021-09-26 01:22 | DI.CT.S_ITS ---
PROCEDURE: CT HEAD/BRAIN WO CON INDICATIONS: history of brain tumor, seizures, with headache TECHNIQUE: Noncontrast 4.5 mm thick angled axial sections acquired from the foramen magnum to the vertex, with coronal and sagittal reformats. For radiation dose reduction, the following was used: automated exposure control, adjustment of mA and/or kV according to patient size. COMPARISON: [facility], CT, CT HEAD/BRAIN WO CON, 09/26/2019, 12:21. FINDINGS: Image quality: Excellent. CSF spaces: Basal cisterns are patent. No extra-axial fluid collections. The ventricles are symmetric in size and shape. Brain: No acute intracranial bleeds or masses. Resection cavity within the left frontal lobe, as before. There is cerebral volume loss for age, with resultant ventricular and sulcal prominence. There are periventricular and deep white matter chronic small vessel ischemic changes. There is intracranial internal carotid artery atherosclerosis. Skull and face: Left frontal craniectomy. Calvarium and visualized facial bones otherwise appear intact, without suspicious lesions. Sinuses: Visualized sinuses and mastoids are clear. IMPRESSION: 1. Postsurgical sequelae. 2. No acute intracranial abnormality. Dictated by: Addison Coronado M.D. on 09/26/2021 at 1:58 Approved by: Addison Coronado M.D. on 09/26/2021 at 1:59
[2021-09-26 01:35] LABS: Add Manual Diff / Slide Review NO; Basophils Absolute Auto 100 /uL (0-100); Basophils Percent Auto 0.7 % (0-2); Eosinophils Absolute Auto 200 /uL (0-450); Eosinophils Percent Auto 1.7 % (2-4); Hematocrit 34.5 % (36-46); Hemoglobin 11.2 g/dL (12.0-16.0); Lymphocytes Absolute Auto 1200 /uL (1100-4500); Lymphocytes Percent Auto 8.8 % (25-40); Mean Corpuscular HGB Conc 32.6 % (30-36); Mean Corpuscular Hemoglobin 29.6 PG (26-34); Monocytes Absolute Auto 900 /uL (0-900); Monocytes Percent Auto 6.7 % (3-14); Neutrophils Absolute Auto 11400 /uL (1500-7000); Neutrophils Percent Auto 82.1 % (50-75); Platelet Count 261 X10^3/uL (150-400); Red Cell Distribution Width 13.4 % (11.6-14.8); White Blood Cell Count 13.9 X10^3/uL (4.5-11.0)
[2021-09-26 01:38] LABS: Alanine Aminotransferase 20 IU/L (<35); Albumin 3.9 g/dL (3.5-5.0); Albumin Globulin Ratio 1.3 (1.0-2.8); Alkaline Phosphatase 101 U/L (38-126); Aspartate Aminotransferase 25 IU/L (14-36); BUN Creatinine Ratio 26.3 (6-22); Bilirubin Total 0.3 mg/dL (0.2-1.3); Blood Urea Nitrogen 26 mg/dL (7-17); Calcium 10.1 mg/dL (8.4-10.2); Carbon Dioxide 37 mmol/L (22-32); Chloride 103 mmol/L (98-107); Creatine Kinase 30 U/L (30-135); Estimated Glomerular Filt Rate 54.7 mL/min (>60); Globulin 2.9 g/dL (1.7-4.1); Glucose 115 mg/dL (80-110); HEMOLYSIS < 15 (0-50); Lipase 75 U/L (23-300); Potassium 4.4 mmol/L (3.4-5.1); Sodium 139 mmol/L (137-145); Total Protein 6.8 g/dL (6.3-8.2)
[2021-09-26 01:51] LABS: Troponin I 0.013 ng/mL (0.01-0.034)
[2021-09-26 01:55] LABS: Procalcitonin 0.09 ng/mL (<0.5)
[2021-09-26 01:57] LABS: COVID19 -Nasal RAPID Negative (Negative)
[2021-09-26] MEDS: LIDOCAINE PATCH 1 EACH ADH..PATCH TOP (07:31)
[2021-09-26] MEDS: ACETAMINOPHEN 325 MG TABLET 975 MG PO (08:01)
[2021-09-26] MEDS: levETIRAcetam 250 MG TABLET 750 MG PO (11:36)
[2021-09-26] MEDS: PHENYTOIN ER 100 MG CAPSULE PO (11:36)
== END 2021-09-26 16:00 | disposition home or self-care (01) ==
PROVIDERS: Emergency Medicine; Emergency Provider Emergency Medicine; PCP Family Medicine
DX: R06.02 Shortness of breath (principal); Z99.81 Dependence on supplemental oxygen; Z87.891 Personal history of nicotine dependence; Z20.822 Contact with and (suspected) exposure to COVID-19; R51.9 Headache, unspecified; Z86.69 Personal history of other diseases of the nervous system and sense organs
CPT/HCPCS: 36415; 70450; 71045; 80053; 82550; 83690; 84145; 84484; 85025; 87635; 93005; 99284; 99285; C9803

== ENCOUNTER 2022-06-01 15:49 | Emergency (ER) | payer MEDICARE, SELFPAY ==
[2022-06-01 15:49] VITALS: BP 209/87; PULSE 62; RESP 19; TEMP 36.8; O2SAT 95
--- NOTE | 2022-06-01 16:07 | DI.RAD.S_ITS ---
PROCEDURE: XR CHEST 1V INDICATIONS: chest pain TECHNIQUE: One view of the chest was acquired. COMPARISON: [facility], , XR CHEST 1V, 09/26/2021, 1:12. FINDINGS: Surgical changes and devices: None. Lungs and pleura: Lungs are clear. No pleural effusions or pneumothorax. Mediastinum: Mediastinal contours appear normal. Heart size is enlarged. Bones and chest wall: No suspicious bony lesions. Overlying soft tissues appear unremarkable. IMPRESSION: Cardiomegaly without vascular congestion Approved by: Dominic Velasquez M.D. on 06/01/2022 at 16:18
[2022-06-01 16:08] VITALS: PULSE 69; RESP 21; O2SAT 97
[2022-06-01 16:10] VITALS: BP 209/87; PULSE 67; RESP 20; O2SAT 98
[2022-06-01 16:25] LABS: Add Manual Diff / Slide Review NO; Basophils Absolute Auto 200 /uL (0-100); Basophils Percent Auto 2.1 % (0-2); Eosinophils Absolute Auto 300 /uL (0-450); Eosinophils Percent Auto 2.8 % (2-4); Lymphocytes Absolute Auto 1800 /uL (1100-4500); Lymphocytes Percent Auto 15.8 % (25-40); Mean Corpuscular HGB Conc 33.4 % (30-36); Mean Corpuscular Volume 89.8 fL (80-100); Monocytes Absolute Auto 900 /uL (0-900); Monocytes Percent Auto 7.9 % (3-14); Neutrophils Absolute Auto 8000 /uL (1500-7000); Neutrophils Percent Auto 71.4 % (50-75); Platelet Count 316 X10^3/uL (150-400); Red Blood Cell Count 3.67 X10^6/uL (4.0-5.2); Red Cell Distribution Width 13.3 % (11.6-14.8); White Blood Cell Count 11.2 X10^3/uL (4.5-11.0)
[2022-06-01 16:30] VITALS: PULSE 64; RESP 19; O2SAT 98
--- NOTE | 2022-06-01 16:32 | ED_ITS ---
HPI - Chest Pain <Gerald BlancJAKI garcia - Last Filed: 06/01/22 19:22> General Chief Complaint: Chest Pain Stated Complaint: CHEST PAIN, SOB, PAIN RT ARM Time Seen by Provider: 06/01/22 16:12 Source: patient Mode of arrival: Family Vehicle Limitations: no limitations History of Present Illness HPI narrative: 76-year-old female, former smoker, presents to emergency department with shortness of breath, chest pain and right arm pain that occurred yesterday. Patient states that she was previously seen in the emergency department where she was diagnosed with a prior myocardial infarction, and was prescribed nitroglycerin at that time. Patient states that she has had a headache but started developing shortness of breath and chest pain yesterday, which was relieved with a single dose of nitroglycerin. Patient later developed chest pain again, along with right arm pain, took another nitroglycerin but symptoms did not resolve. EMS was contacted and reported that [place] was well enough [place] Patient was encouraged to present to the emergency department today for evaluation. Patient denies any chest pain, shortness of breath or right arm pain since EMS evaluation yesterday. Patient is on home O2 at 2 liters/minute via nasal cannula. Related Data Previous Rx's Medication Instructions Recorded VITAMIN D (Vitamin D3) 1,000 u PO QDAY #180 tabs 06/17/16 albuterol sulfate 2.5 mg/3 mL 3 ml INH X1 ##1 08/05/16 (0.083 %) solution for nebulization famotidine 20 mg tablet 20 mg PO QDAY #90 tabs 01/20/17 furosemide 40 mg tablet 40 mg PO QDAY #90 tabs 01/20/17 lisinopril 2.5 mg tablet 2.5 mg PO QDAY #90 tabs 01/20/17 metformin 500 mg tablet 500 mg PO BID #180 tabs 01/20/17 (Glucophage) Test Strips - Freestyle str SEECOM SEE INSTRUCTIONS ##100 01/21/17 montelukast 10 mg tablet 10 mg PO HS #30 tabs 02/24/17 (Singulair) doxycycline monohydrate 100 mg 100 mg PO BID #14 caps 08/07/18 capsule Allergies Allergy/AdvReac Type Severity Reaction Status Date / Time codeine Allergy Unknown ITCHING Verified 09/26/19 10:20 morphine Allergy Unknown RASH Verified 09/26/19 10:20 Penicillins Allergy Unknown RASH Verified 09/26/19 10:20 Review of Systems <JAKI Kenney - Last Filed: 06/01/22 19:22> Review of Systems Narrative: Narrative: See HPI. GENERAL: Denies chills, fatigue, fever, sweats. HEENT: Denies sinus pain, ear pain, sore throat, difficulty swallowing, dizziness. RESPIRATORY: Denies dyspnea, cough, wheezing, sputum. Patient is on home O2. CARDIOVASCULAR: Denies chest pain, palpitations, edema. GASTROINTESTINAL: Denies nausea, vomiting, abdominal pain, diarrhea, constipation. : Denies dysuria, frequency, incontinence, hematuria, urinary retention, flank pain. MSK: Denies weakness, joint pain, or bony pain. SKIN: Denies rash, skin lesions, or pruritis. NEUROLOGIC: Denies weakness, dizziness, headache, numbness, confusion. PSYCHIATRIC: No concerning psychosocial issues. Patient History <JAKI Kenney - Last Filed: 06/01/22 19:22> Medical History (Updated 06/01/22 @ 19:12 by JAKI Kenney) Chronic obstructive pulmonary disease (06/17/16) Essential hypertension (06/17/16) Gastroesophageal reflux disease (01/24/16) History of meningioma of the brain (01/24/16) Hypercalcemia (06/17/16) Hyperparathyroidism (01/24/16) Mild persistent asthma without complication (06/17/16) Mixed hyperlipidemia (06/17/16) Mixed stress and urge urinary incontinence (02/24/17) Stage 3 chronic kidney disease (01/24/16) Type 2 diabetes mellitus without complication, without long-term current use of insulin (06/17/16) Vitamin D deficiency (02/24/17) Surgical History Status post hysterectomy Family History Grandfather Cancer Grandmother Stroke Mother Cancer Other Chronic obstructive pulmonary disease Essential hypertension Gastroesophageal reflux disease Hypercalcemia Mild persistent asthma without complication Mixed hyperlipidemia Mixed stress and urge urinary incontinence Type 2 diabetes mellitus without complication, without long-term current use of insulin Vitamin D deficiency Social History Smoking Status: Former smoker Smoking Status: Former smoker alcohol intake frequency: 0-2 drinks per day Substance Use Type: does not use Exam <JAKI Kenney - Last Filed: 06/01/22 19:22> Narrative Exam Narrative: Exam Narrative: GENERAL: This is a well-nourished, well-developed patient, in no acute distress. HEAD: Atraumatic. Normocephalic. EYES: Pupils equal round and reactive. Extraocular motions intact. No scleral icterus, injection or drainage. ENT: Nose without bleeding, purulent drainage. Throat without erythema, tonsillar hypertrophy or exudate. Uvula midline. Airway patent. TMs and canals clear. No sinus tenderness. NECK: Trachea midline. No JVD or lymphadenopathy. Nontender. CARDIOVASCULAR: Regular rate and rhythm without murmurs, peripheral pulses i ntact, cap refill <2 sec. RESPIRATORY: Breath sounds equal and clear bilaterally. No wheezes, rales, or rhonchi. No cough. Mild increased respiratory effort, patient on home O2. No accessory muscle use. GASTROINTESTINAL: Abdomen soft, non-tender, nondistended without guarding or rebound. No suprapubic pain. MSK: Moves all extremities. Normal range of motion, no clubbing or edema. Neurovascularly intact. NEURO: A&O x 3. SKIN: Warm, dry, no rashes or lesions noted. Initial Vital Signs Initial Vital Signs: Vital Signs Temperature 98.3 F 06/01/22 15:49 Pulse Rate 62 06/01/22 15:49 Respiratory Rate 19 06/01/22 15:49 Blood Pressure 209/87 H 06/01/22 15:49 Pulse Oximetry 95 06/01/22 15:49 Oxygen Delivery Method 06/01/22 15:49 Oxygen Flow Rate 2 06/01/22 15:49 Reviewed <Bay Mcbride DO - Last Filed: 06/02/22 02:37> Initial Vital Signs Initial Vital Signs: Vital Signs Temperature 98.3 F 06/01/22 15:49 Pulse Rate 62 06/01/22 15:49 Respiratory Rate 19 06/01/22 15:49 Blood Pressure 209/87 H 06/01/22 15:49 Pulse Oximetry 95 06/01/22 15:49 Oxygen Delivery Method 06/01/22 15:49 Oxygen Flow Rate 2 06/01/22 15:49 Scores <JAKI Kenney - Last Filed: 06/01/22 19:22> HEART Score Heart Score history: Moderately Suspicious Heart Score EKG: Non-Specific repolarization disturbance Heart Score Age: > or = 65 years old Heart Score risk factors: 1-2 risk factors Heart Score troponin: < or = to normal limit Heart Score Total: 5 <Bay Mcbride DO - Last Filed: 06/02/22 02:37> HEART Score Heart Score Total: 5 Course <JAKI Kenney - Last Filed: 06/01/22 19:22> Orders Ordered: Discontinued Medications Aspirin (Aspirin Ec 325 Mg Tablet) 325 mg PO NOW ONE Stop: 06/01/22 16:53 Last Admin: 06/01/22 17:16 Dose: 325 mg Documented By: CASTILLO Vital Signs Vital signs: Vital Signs - 8 hr 06/01/22 15:49 06/01/22 16:08 06/01/22 16:10 Temperature 98.3 F Pulse Rate 62 69 Respiratory Rate 19 21 Blood Pressure 209/87 H 209/87 H Pulse Oximetry 95 97 Oxygen Delivery Method Nasal Cannula Oxygen Flow Rate 2 06/01/22 16:10 06/01/22 16:30 06/01/22 17:00 Temperature Pulse Rate 67 64 64 Respiratory Rate 20 19 25 H Blood Pressure Pulse Oximetry 98 98 96 Oxygen Delivery Method Oxygen Flow Rate 06/01/22 17:30 Temperature Pulse Rate 61 Respiratory Rate 22 Blood Pressure Pulse Oximetry 98 Oxygen Delivery Method Oxygen Flow Rate <Bay Mcbride DO - Last Filed: 06/02/22 02:37> Orders Ordered: Discontinued Medications Aspirin (Aspirin Ec 325 Mg Tablet) 325 mg PO NOW ONE Stop: 06/01/22 16:53 Last Admin: 06/01/22 17:16 Dose: 325 mg Documented By: RLS Vital Signs Vital signs: Vital Signs - 8 hr 06/01/22 15:49 06/01/22 16:08 06/01/22 16:10 Temperature 98.3 F Pulse Rate 62 69 Respiratory Rate 19 21 Blood Pressure 209/87 H 209/87 H Pulse Oximetry 95 97 Oxygen Delivery Method Nasal Cannula Oxygen Flow Rate 2 06/01/22 16:10 06/01/22 16:30 06/01/22 17:00 Temperature Pulse Rate 67 64 64 Respiratory Rate 20 19 25 H Blood Pressure Pulse Oximetry 98 98 96 Oxygen Delivery Method Oxygen Flow Rate 06/01/22 17:30 Temperature Pulse Rate 61 Respiratory Rate 22 Blood Pressure Pulse Oximetry 98 Oxygen Delivery Method Oxygen Flow Rate MDM - Chest Pain <Gerald BhandariJAKI - Last Filed: 06/01/22 19:22> Differential Diagnosis Differential diagnosis: Likely chest pain Lab Data Result diagrams: 06/01/22 16:15 06/01/22 16:15 Labs: Lab Results 06/01/22 06/01/22 06/01/22 Range/Units 16:15 16:15 16:40 WBC 11.2 H (4.5-11.0) X10^3/uL RBC 3.67 L (4.0-5.2) X10^6/uL Hgb 11.0 L (12.0-16.0) g/dL Hct 33.0 L (36-46) % MCV 89.8 (80-100) fL MCH 30.0 (26-34) PG MCHC 33.4 (30-36) % RDW 13.3 (11.6-14.8) % Plt Count 316 (150-400) X10^3/uL Neut % (Auto) 71.4 (50-75) % Lymph % (Auto) 15.8 L (25-40) % Woodson % (Auto) 7.9 (3-14) % Eos % (Auto) 2.8 (2-4) % Baso % (Auto) 2.1 H (0-2) % Neut # (Auto) 8000 H (7261-1397) /uL Lymph # (Auto) 1800 (8088-9467) /uL Woodson # (Auto) 900 (0-900) /uL Eos # (Auto) 300 (0-450) /uL Baso # (Auto) 200 H (0-100) /uL Sodium 139 (137-145) mmol/L Potassium 4.6 (3.4-5.1) mmol/L Chloride 104 (98-107) mmol/L Carbon Dioxide 31 (22-32) mmol/L BUN 20 H (7-17) mg/dL Creatinine 0.93 (0.52-1.04) mg/dL Estimated GFR > 60 (>60) mL/min BUN/Creatinine Ratio 21.5 (6-22) Glucose 131 H (80-110) mg/dL Calcium 9.8 (8.4-10.2) mg/dL Magnesium 1.8 (1.6-2.3) mg/dL Total Bilirubin 0.4 (0.2-1.3) mg/dL AST 35 (14-36) IU/L ALT 24 (<35) IU/L Alkaline Phosphatase 98 (38-126) U/L Total Creatine Kinase 78 (30-135) U/L CK-MB (CK-2) TNP CK-MB (CK-2) Rel Index TNP Troponin I 0.020 (0.01-0.034) ng/mL Total Protein 6.6 (6.3-8.2) g/dL Albumin 3.6 (3.5-5.0) g/dL Globulin 3.0 (1.7-4.1) g/dL Albumin/Globulin Ratio 1.2 (1.0-2.8) Lipase 116 (23-300) U/L Urine RBC 5-10/hpf H (0-5/HPF) Urine WBC 10-30/hpf H (0-5/HPF) Ur Squamous Epith Cells 1-5 /hpf (0-5/HPF) Ur Transition Epith Cell 1-5/hpf (0-5/HPF) Urine Bacteria Few (2-10) H (None) Ur Culture Indicated? Specimen cultured 06/01/22 Range/Units 18:21 WBC (4.5-11.0) X10^3/uL RBC (4.0-5.2) X10^6/uL Hgb (12.0-16.0) g/dL Hct (36-46) % MCV (80-100) fL MCH (26-34) PG MCHC (30-36) % RDW (11.6-14.8) % Plt Count (150-400) X10^3/uL Neut % (Auto) (50-75) % Lymph % (Auto) (25-40) % Woodson % (Auto) (3-14) % Eos % (Auto) (2-4) % Baso % (Auto) (0-2) % Neut # (Auto) (8155-5612) /uL Lymph # (Auto) (4463-3330) /uL Woodson # (Auto) (0-900) /uL Eos # (Auto) (0-450) /uL Baso # (Auto) (0-100) /uL Sodium (137-145) mmol/L Potassium (3.4-5.1) mmol/L Chloride (98-107) mmol/L Carbon Dioxide (22-32) mmol/L BUN (7-17) mg/dL Creatinine (0.52-1.04) mg/dL Estimated GFR (>60) mL/min BUN/Creatinine Ratio (6-22) Glucose (80-110) mg/dL Calcium (8.4-10.2) mg/dL Magnesium (1.6-2.3) mg/dL Total Bilirubin (0.2-1.3) mg/dL AST (14-36) IU/L ALT (<35) IU/L Alkaline Phosphatase (38-126) U/L Total Creatine Kinase (30-135) U/L CK-MB (CK-2) CK-MB (CK-2) Rel Index Troponin I < 0.012 (0.01-0.034) ng/mL Total Protein (6.3-8.2) g/dL Albumin (3.5-5.0) g/dL Globulin (1.7-4.1) g/dL Albumin/Globulin Ratio (1.0-2.8) Lipase (23-300) U/L Urine RBC (0-5/HPF) Urine WBC (0-5/HPF) Ur Squamous Epith Cells (0-5/HPF) Ur Transition Epith Cell (0-5/HPF) Urine Bacteria (None) Ur Culture Indicated? Urine Dip Bedside Urine Glucose Negative Bedside Urine Bilirubin - Negative Bedside Urine Ketone - Negative Urine Specific [place] 1.02 Bedside Urine Occult Blood - Negative Bedside Urine pH 6.0 Bedside Urine Protein ++ 100 Bedside Urine Urobilinogen - Negative Bedside Urine Nitrite - Negative Bedside Urine Leukocytes - Negative Esterase Imaging Data Chest x-ray: Radiologist's Impression: [address] [address] XRay Report Signed Patient: Ivan Guy MR#: [id number] : 1945 Acct:[id number] Age/Sex: 76 / F Date of Service: 06/01/22 Loc: ED Accession Number: [id number] ?? Procedure: XR chest 1V Ordering Provider: Aminta Meneses D.O. PROCEDURE:? XR CHEST 1V ? INDICATIONS:? chest pain ? TECHNIQUE:? One view of the chest was acquired.? ? COMPARISON:? [facility], CR, XR CHEST 1V, 09/26/2021, 1:12. ? FINDINGS:? ? Surgical changes and devices:? None.? ? Lungs and pleura:? Lungs are clear.? No pleural effusions or pneumothorax.? ? Mediastinum:? Mediastinal contours appear normal.? Heart size is enlarged.? ? Bones and chest wall:? No suspicious bony lesions.? Overlying soft tissues appear unremarkable.? ? IMPRESSION:? Cardiomegaly without vascular congestion ? ? ? Approved by: Dominic Velasquez M.D. on 06/01/2022 at 16:18? ECG Data Interpretation: NSR w/ vent rate of [address]&T wave abnormality with mild changes in V1-6/ NSR w/ vent rate of [address] and T abnormaility that correlated better with 09/26/21 ekg. MDM Narrative Medical decision making narrative: 76-year-old female presents to the walk-in clinic with resolved chest pain from the previous day. Mild EKG changes, with the 2nd EKG correlating with previous EKGs. Labs were within tolerable limits, Initial and repeat troponin were normal. Patient was given aspirin. Patient is not experiencing any chest pain, shortness of breath or right arm pain. After mutual decision making, patient a nd provider feel that she is okay to return home at this time. Patient's will be with her. Discussed plan of care and worsening symptoms that would necessitate a immediate return to the emergency department. Patient verbalized understanding and was agreeable with course of action. <Bay Mcbride, DO - Last Filed: 06/02/22 02:37> Lab Data Labs: Lab Results 06/01/22 06/01/22 06/01/22 Range/Units 16:15 16:15 16:40 WBC 11.2 H (4.5-11.0) X10^3/uL RBC 3.67 L (4.0-5.2) X10^6/uL Hgb 11.0 L (12.0-16.0) g/dL Hct 33.0 L (36-46) % MCV 89.8 (80-100) fL MCH 30.0 (26-34) PG MCHC 33.4 (30-36) % RDW 13.3 (11.6-14.8) % Plt Count 316 (150-400) X10^3/uL Neut % (Auto) 71.4 (50-75) % Lymph % (Auto) 15.8 L (25-40) % Woodson % (Auto) 7.9 (3-14) % Eos % (Auto) 2.8 (2-4) % Baso % (Auto) 2.1 H (0-2) % Neut # (Auto) 8000 H (9084-2102) /uL Lymph # (Auto) 1800 (3549-7218) /uL Woodson # (Auto) 900 (0-900) /uL Eos # (Auto) 300 (0-450) /uL Baso # (Auto) 200 H (0-100) /uL Sodium 139 (137-145) mmol/L Potassium 4.6 (3.4-5.1) mmol/L Chloride 104 (98-107) mmol/L Carbon Dioxide 31 (22-32) mmol/L BUN 20 H (7-17) mg/dL Creatinine 0.93 (0.52-1.04) mg/dL Estimated GFR > 60 (>60) mL/min BUN/Creatinine Ratio 21.5 (6-22) Glucose 131 H (80-110) mg/dL Calcium 9.8 (8.4-10.2) mg/dL Magnesium 1.8 (1.6-2.3) mg/dL Total Bilirubin 0.4 (0.2-1.3) mg/dL AST 35 (14-36) IU/L ALT 24 (<35) IU/L Alkaline Phosphatase 98 (38-126) U/L Total Creatine Kinase 78 (30-135) U/L CK-MB (CK-2) TNP CK-MB (CK-2) Rel Index TNP Troponin I 0.020 (0.01-0.034) ng/mL Total Protein 6.6 (6.3-8.2) g/dL Albumin 3.6 (3.5-5.0) g/dL Globulin 3.0 (1.7-4.1) g/dL Albumin/Globulin Ratio 1.2 (1.0-2.8) Lipase 116 (23-300) U/L Urine RBC 5-10/hpf H (0-5/HPF) Urine WBC 10-30/hpf H (0-5/HPF) Ur Squamous Epith Cells 1-5 /hpf (0-5/HPF) Ur Transition Epith Cell 1-5/hpf (0-5/HPF) Urine Bacteria Few (2-10) H (None) Ur Culture Indicated? Specimen cultured 06/01/22 Range/Units 18:21 WBC (4.5-11.0) X10^3/uL RBC (4.0-5.2) X10^6/uL Hgb (12.0-16.0) g/dL Hct (36-46) % MCV (80-100) fL MCH (26-34) PG MCHC (30-36) % RDW (11.6-14.8) % Plt Count (150-400) X10^3/uL Neut % (Auto) (50-75) % Lymph % (Auto) (25-40) % Woodson % (Auto) (3-14) % Eos % (Auto) (2-4) % Baso % (Auto) (0-2) % Neut # (Auto) (5773-1352) /uL Lymph # (Auto) (1464-1300) /uL Woodson # (Auto) (0-900) /uL Eos # (Auto) (0-450) /uL Baso # (Auto) (0-100) /uL Sodium (137-145) mmol/L Potassium (3.4-5.1) mmol/L Chloride (98-107) mmol/L Carbon Dioxide (22-32) mmol/L BUN (7-17) mg/dL Creatinine (0.52-1.04) mg/dL Estimated GFR (>60) mL/min BUN/Creatinine Ratio (6-22) Glucose (80-110) mg/dL Calcium (8.4-10.2) mg/dL Magnesium (1.6-2.3) mg/dL Total Bilirubin (0.2-1.3) mg/dL AST (14-36) IU/L ALT (<35) IU/L Alkaline Phosphatase (38-126) U/L Total Creatine Kinase (30-135) U/L CK-MB (CK-2) CK-MB (CK-2) Rel Index Troponin I < 0.012 (0.01-0.034) ng/mL Total Protein (6.3-8.2) g/dL Albumin (3.5-5.0) g/dL Globulin (1.7-4.1) g/dL Albumin/Globulin Ratio (1.0-2.8) Lipase (23-300) U/L Urine RBC (0-5/HPF) Urine WBC (0-5/HPF) Ur Squamous Epith Cells (0-5/HPF) Ur Transition Epith Cell (0-5/HPF) Urine Bacteria (None) Ur Culture Indicated? Urine Dip Bedside Urine Glucose Negative Bedside Urine Bilirubin - Negative Bedside Urine Ketone - Negative Urine Specific [place] 1.02 Bedside Urine Occult Blood - Negative Bedside Urine pH 6.0 Bedside Urine Protein ++ 100 Bedside Urine Urobilinogen - Negative Bedside Urine Nitrite - Negative Bedside Urine Leukocytes - Negative Esterase Discharge Plan Departure Patient Disposition: Home Clinical Impression: Chest pain Activity Restrictions/Additional Instructions: *You have been diagnosed with resolved chest pain. Your chest x-ray was normal, your labs were within acceptable limits and your EKGs have improved. My assessment was encouraging and together you and I have decided that you are okay to go home at this time. For any worsening symptoms that include returning chest pain, shortness of breath, etc., please call 911 or return to the emergency room immediately. Otherwise, please follow-up with your family doctor as needed. We will contact you with the results of the urine culture, and treat if necessary. *What to do: *Please continue to take your regular medications as directed. [ ] New medication prescriptions sent to your pharmacy: [ ] [ ] New medication written as a paper prescription [ x] No new medications given *Please follow up with your primary care provider in 2-3 days, call for an appointment. Let them know you were seen in the Emergency Department and that we ask that you be seen in follow up. We will electronically transmit a record of today's note if your PCP is in our system *If you do not have a primary care provider please contact the [facility] Resource line at [phone]. They will ask some questions about your medical history and help get you set up with a doctor in the community. ? Return to ER if you should have any new, worsening or concerning symptoms, such as worsening pain, severe headache, confusion, chest pain, difficulty breathing, fever greater than 101 F, shaking chills, persistent vomiting to the point that you cannot drink fluids, or other new or worsening symptoms. Prescriptions: No Action VITAMIN D (Vitamin D3) 1,000 u PO QDAY Qty: 180 1RF albuterol sulfate 2.5 MG/3 ML solution for nebulization 3 ml INH X1 Qty: 1 2RF furosemide 40 MG tablet 40 mg PO QDAY Qty: 90 1RF metformin [Glucophage] 500 MG tablet 500 mg PO BID Qty: 180 1RF lisinopril 2.5 MG tablet 2.5 mg PO QDAY Qty: 90 1RF famotidine 20 MG tablet 20 mg PO QDAY Qty: 90 1RF Test Strips - Freestyle SEECOM SEE INSTRUCTIONS Qty: 100 3RF montelukast [Singulair] 10 MG tablet 10 mg PO HS Qty: 30 2RF doxycycline monohydrate 100 mg capsule 100 mg PO BID Qty: 14 0RF Referrals: Boy Patiño MD [Primary Care Provider] - Visit Report Forms: Patient Portal/API <Bay Mcbride DO - Last Filed: 06/02/22 02:37> Cosign ED Attending Cosskylerature Attestation: I was immediately available in the department for consultation. This documentation has been reviewed and I agree with assessment and plan. Supervised by Bay Mcbride DO
[2022-06-01 16:40] LABS: Alanine Aminotransferase 24 IU/L (<35); Albumin 3.6 g/dL (3.5-5.0); Albumin Globulin Ratio 1.2 (1.0-2.8); Alkaline Phosphatase 98 U/L (38-126); Aspartate Aminotransferase 35 IU/L (14-36); BUN Creatinine Ratio 21.5 (6-22); Bilirubin Total 0.4 mg/dL (0.2-1.3); Blood Urea Nitrogen 20 mg/dL (7-17); Calcium 9.8 mg/dL (8.4-10.2); Carbon Dioxide 31 mmol/L (22-32); Chloride 104 mmol/L (98-107); Creatine Kinase 78 U/L (30-135); Estimated Glomerular Filt Rate > 60 mL/min (>60); Glucose 131 mg/dL (80-110); Lipase 116 U/L (23-300); Magnesium 1.8 mg/dL (1.6-2.3); Potassium 4.6 mmol/L (3.4-5.1); Sodium 139 mmol/L (137-145); Total Protein 6.6 g/dL (6.3-8.2)
[2022-06-01 16:43] LABS: HEMOLYSIS 100 (0-50)
[2022-06-01 17:00] VITALS: PULSE 64; RESP 25; O2SAT 96
[2022-06-01] MEDS: ASPIRIN EC 325 MG TABLET PO (17:16)
[2022-06-01 17:30] VITALS: PULSE 61; RESP 22; O2SAT 98
[2022-06-01 18:29] LABS: Bacteria Urine Few (2-10); Culture Indicated Urine Specimen Cultured; RBC Urine 5-10/HPF (0-5/HPF); Squamous Epithelial Cell Urine 1-5 /HPF (0-5/HPF); Transitional Epi Cells Urine 1-5/HPF (0-5/HPF); WBC Urine 10-30/HPF (0-5/HPF)
[2022-06-01 18:46] LABS: Troponin I < 0.012 ng/mL (0.01-0.034)
== END 2022-06-01 19:37 | disposition home or self-care (01) ==
PROVIDERS: Emergency Medicine; Emergency Provider Registered Nurse; PCP Family Medicine
DX: R07.9 Chest pain, unspecified (principal); I25.2 Old myocardial infarction
CPT/HCPCS: 36415; 71045; 80053; 81003; 81015; 82550; 83690; 83735; 84484; 85025; 87086; 93005; 99284; 99285